=== PATIENT | female | born 1940 | race Caucasian/White ===

== ENCOUNTER 2016-12-11 18:25 | Inpatient (IN) | payer MEDICARE, MEDICAID ==
--- NOTE | 2016-12-11 20:16 | ED Physician Chart ---
Chief Complaint/HPI - Patient Information Date Seen:: 12/11/16 Time Seen:: 20:00 Chief Complaint:: anorexia History of Present Illness:: patient has had decreased oral intake and confusion, agitation and periods of combative behavior. Daughter says patient talks but what she says does not make sense. Patient was hospitalized from 2 to 1 week ago at [facility] for a UTI. Allergies:: Allergies Allergy/AdvReac Type Severity Reaction Status Date / Time Sulfa (Sulfonamide Allergy Verified 12/11/16 19:09 Antibiotics) Vitals:: Vital Signs - 8 hr 12/11/16 18:58 Temp 98.6 F HR 81 RR 16 BP 113/64 O2 Sat % 98 Historian:: Family Member Review:: Nurse's Note Reviewed Review of Systems - Review of Systems General/Constitutional: No fever, No chills Skin: No skin lesions Head: No headache Eyes: No loss of vision ENT: No earache Neck: No neck pain Cardio Vascular: No chest pain, No palpitations Pulmonary: No SOB, No cough GI: No nausea, No vomiting, No diarrhea G/U: No dysuria Musculoskeletal: No bone or joint pain Endocrine: No polyuria, No polydipsia Psychiatric: Prior psych history Past Medical History - Past Medical History Past Medical History: HTN, DM, Dyslipidemia, Other (hypercholesterolemia; dementia; s/p UTI and hematuria) Family History: Diabetes Melitus, HTN Social History: Non Smoker, No Alcohol Surgical History: Cholecystectomy, Hysterectomy Psychiatricy History: Dementia Medication: Reviewed Family Medical History - Family Member Mother History Unknown: Yes Physical Exam - Physical Examination General/Constitutional: Well-developed, well-nourished, Alert, No distress Head: Atraumatic Eyes: Lids, conjuctiva normal, PERRL Skin: Nl inspection, No rash ENMT: External ears, nose nl Neck: No nuchal rigidity Respiratory: Nl effort/Exclusion, Clear to Auscultation Cardio Vascular: RRR GI: No tenderness/rebounding/guarding, No organomegaly, No hernia : No CVA tenderness Neuro/Psych: No focal deficits Labs/Radiology/EKG Results - Lab Results Comments:: Laboratory Results - last 24 hr 12/11/16 12/11/16 20:16 20:16 WBC 9.1 RBC 3.70 L Hgb 11.1 L Hct 32.5 L MCV 87.8 MCH 29.9 MCHC Differential 34.1 RDW 12.9 Plt Count 301 MPV 7.0 Neutrophils % 68.6 Lymphocytes % 25.1 Monocytes % 4.8 Eosinophils % 0.6 Basophils % 0.9 Sodium 132 L Potassium 3.9 Chloride 101 Carbon Dioxide 25.7 Anion Gap 9.2 BUN 23 Creatinine 0.7 Est GFR ( Amer) TNP Est GFR (Non-Af Amer) TNP BUN/Creatinine Ratio 32.9 Glucose 272 H Calcium 9.2 Magnesium 1.6 L Total Bilirubin 0.2 L AST 14 ALT 12 Alkaline Phosphatase 62 Total Protein 6.1 Albumin 3.4 L Globulin 2.7 Albumin/Globulin Ratio 1.3 - Radiology Results Results: CXR negative - EKG Interpretations Rate & Rhythm: NSR; normal axis; old septal PR Assessment - Assessment General Assessment: talked to Dr. Clancy at 2130; patient to be admitted to Med-surg. UA not obtained because of patient's history of combativeness. ED Septic Shock - . Is Septic Shock (SBP<90, OR Lactate>4 mmol\L) present?: No - <6hrs of presentation: Vital Signs: Vital Signs - 8 hr 12/11/ 18:58 Temp 98.6 F HR 81 RR 16 BP 113/64 O2 Sat % 98 Reassessment (Disposition) - Reassessment Reassessment Condition:: Unchanged - Diagnosis Diagnosis:: altered mental status; dementia; hyperglycemia; diabetes - Patient Disposition Admitted to:: Med/Surg Spoke to:: Jesus Clancy Admitting Medical Physician:: Jesus Clancy Condition at Disposition:: Stable, Unchanged
[2016-12-11 20:25] LABS: % BASOPHILS 0.9 % (0.0-2.0); % EOSINOPHILS 0.6 % (0.0-5.0); % LYMPHOCYTES 25.1 % (20.0-50.0); % MONOCYTES 4.8 % (2.0-10.0); % NEUTROPHILS 68.6 % (40.0-80.0); HEMATOCRIT 32.5 % (35.0-45.0); HEMOGLOBIN 11.1 gm/dL (11.7-16.1); MEAN CELL VOLUME 87.8 fl (81-100); MEAN CORPUSCULAR HEMOGLOBIN 29.9 pg (27.0-31.0); MEAN CORPUSCULAR HGB CONC 34.1 pg (28.0-36.0); NEUTROPHILE ABSOLUTE 6.2 Th/cmm (1.8-8.0); PLATELET COUNT 301 Th/cmm (150-400); RED CELL DISTRIBUTION WIDTH 12.9 % (11.5-20.0); WHITE BLOOD COUNT 9.1 Th/cmm (4.8-10.8)
[2016-12-11 20:40] LABS: ALB/GLOB RATIO 1.3 (1.0-1.8); ALKALINE PHOSPHATASE 62 U/L (34-104); ANION GAP 9.2 (7.0-16.0); BILIRUBIN,TOTAL 0.2 mg/dL (0.3-1.0); BUN - UREA NITROGEN 23 mg/dL (7-25); BUN/CREATININE RATIO 32.9; CALCIUM SERUM 9.2 mg/dL (8.6-10.3); CARBON DIOXIDE 25.7 mEq/L (21.0-31.0); CHLORIDE 101 mEq/L (98-107); CREATININE - SERUM 0.7 mg/dL (0.6-1.2); GLUCOSE 272 mg/dL (70-105); MAGNESIUM 1.6 mg/dL (1.9-2.7); POTASSIUM SERUM 3.9 mEq/L (3.5-5.1); SGOT 14 U/L (13-39); SGPT/ALT 12 U/L (7-52); SODIUM SERUM 132 mEq/L (136-145)
[2016-12-11] MEDS ORDERED: Haloperidol Lactate 5 mg/mL 1mL Vial IM STA (22:05)
[2016-12-11] MEDS ORDERED: Haloperidol Lactate 5 mg/mL 1mL Vial ONE (22:06)
[2016-12-11 23:24] VITALS: BP 110/62
[2016-12-12] MEDS ORDERED: Magnesium Hydroxide (MOM) 30 mL UDC PO PRN (00:13)
[2016-12-12] MEDS: Sodium Chloride 0.9% 1,000 ML IV SCH ×2 (00:38→09:32)
[2016-12-12] MEDS: INSULIN ASPART SLIDING SCALE 100 UNITS/ML UNIT SUBQ SCH ×2 (06:31→11:30)
--- NOTE | 2016-12-12 08:30 | Diagnostic Imaging Report ---
Portable chest x-ray Time: 2022 History: Pneumonia Findings: Allowing for portable technique the heart size is normal. No focal pulmonary parenchymal processes. No hilar or mediastinal abnormalities. Impression: No acute abnormalities.
[2016-12-12] MEDS ORDERED: VTE Chemical Prophylaxis Screen/Admission MC PRN (15:19)
[2016-12-12] MEDS ORDERED: Atorvastatin Calcium 10 MG TAB PO SCH (21:00)
--- NOTE | 2016-12-12 21:50 | History & Physical ---
ADMIT DATE: 12/12/2016 HISTORY OF PRESENT ILLNESS: The patient came last night and was admitted initially to the medical floor. The patient is a resident of [facility]. The patient is known to have history of hypertension, history of diabetes, history of dementia, history of psychosis, history of metabolic encephalopathy, apparently not eating, drinking, was agitated and confused, and combative behavior, found to have dehydration and toxic metabolic encephalopathy, and the patient was initially admitted to the medical floor. PAST MEDICAL HISTORY: As enumerated above. PAST SURGICAL HISTORY: As enumerated above. The patient also has perineal excoriation. PHYSICAL EXAMINATION: HEAD: Normal. ENT: Normal. NECK: Supple, nontender. LUNGS: Clear. CARDIOVASCULAR SYSTEM: S1, S2 heard. PSYCHIATRIC: The patient was agitated. DIAGNOSES: Severe agitation, toxic metabolic encephalopathy, confusion, agitation, combative behavioral, history of diabetes, history of hypertension, history of dementia, history of psychosis, history of depression, anxiety, and perineal aspiration . PLAN: The patient is being admitted, given fluids, and I had Dr. Banda see the patient. Dr. Fismhan for psych consult. JOB# [id number]
== END 2016-12-12 16:40 | DRG 640 ==
LOC: ER 18:25 → MSI 21:30
PROVIDERS: ADMIT Internal Medicine; ATTEND Internal Medicine
DX: E86.0 Dehydration (principal); G92 Toxic encephalopathy; F03.91 Unspecified dementia, unspecified severity, with behavioral disturbance; E11.65 Type 2 diabetes mellitus with hyperglycemia; R63.0 Anorexia; I10 Essential (primary) hypertension; E78.5 Hyperlipidemia, unspecified; E78.00 Pure hypercholesterolemia, unspecified; F29 Unspecified psychosis not due to a substance or known physiological condition; F32.9 Major depressive disorder, single episode, unspecified; F41.9 Anxiety disorder, unspecified; Z68.22 Body mass index [BMI] 22.0-22.9, adult; Z87.440 Personal history of urinary (tract) infections; Z88.2 Allergy status to sulfonamides; Z90.49 Acquired absence of other specified parts of digestive tract; Z90.710 Acquired absence of both cervix and uterus; Z83.3 Family history of diabetes mellitus; Z82.49 Family history of ischemic heart disease and other diseases of the circulatory system
CPT/HCPCS: 36415-UA; 71010-TC; 80053-TC; 82948-90; 83036-90; 83735-TC; 85025-TC; 93005; J1200; J1630; J1815; J2060; J7030

== ENCOUNTER 2016-12-12 17:10 | Inpatient (IN) | payer MEDICARE, MEDICAID ==
[2016-12-12 17:15] VITALS: BP 132/74
[2016-12-12] MEDS ORDERED: Magnesium Hydroxide (MOM) 30 mL UDC PO PRN (17:21)
[2016-12-12] MEDS ORDERED: INSULIN ASPART SLIDING SCALE 100 UNITS/ML UNIT SUBQ SCH (21:00)
[2016-12-12] MEDS: Atorvastatin Calcium 10 MG TAB PO SCH (21:14)
[2016-12-12] MEDS: INSULIN ASPART, RECOMBINANT 100 UNITS/ML SUBQ SCH (21:20)
--- NOTE | 2016-12-12 21:54 | History & Physical ---
ADMIT DATE: 12/12/2016 HISTORY OF PRESENT ILLNESS: This is a 76-year-old female patient came from [facility]. The patient is known to have history of diabetes, hypertension, dementia, psychosis, depression, anxiety, perianal excoriation initially was admitted to the medical floor for not eating and failure to thrive, and toxic metabolic encephalopathy, and the patient improved with fluids. The patient was transferred to Geropsych Unit for a psychiatric problem. Dr. Fishman is on the case and is the psych doctor. PHYSICAL EXAMINATION: GENERAL: Alert, oriented female. VITAL SIGNS: As noted in chart. ENT: Normal. LUNGS: Bilaterally clear. CARDIOVASCULAR SYSTEM: S1, S2 heard. ABDOMEN: Soft. Bowel sounds are heard. CENTRAL NERVOUS SYSTEM: Grossly normal. PLAN: This patient is going to be admitted and I will follow the patient medically and Dr. Fishman will follow the patient. JOB# [id number]
[2016-12-13] MEDS: INSULIN ASPART, RECOMBINANT 100 UNITS/ML SUBQ SCH ×4 (06:41→23:22)
--- NOTE | 2016-12-13 10:24 | Progress Notes ---
DATE: 12/13/2016 SUBJECTIVE: The patient was seen in her room, having breakfast. The patient is awake, alert, and oriented x 2 with episodes of confusion. The patient is a poor historian due to medical condition. Otherwise, the patient appears to be comfortable in no acute distress. OBJECTIVE: VITAL SIGNS: Temperature is 98, heart rate of 93, blood pressure is 153/74, respirations of 20, saturation is 97% on room air. HEENT: Head is atraumatic and normocephalic. Eyes: Bilateral conjunctivae are clear. Bilateral pupils are equally round and reactive. NECK: Supple. No JVD. CARDIOVASCULAR: S1 and S2, without murmur. PULMONARY: Clear to auscultation. GASTROINTESTINAL: Soft and nontender without guarding. Positive bowel sounds. MUSCULOSKELETAL: No edema, no clubbing, no cyanosis. ASSESSMENT: 1. Psychosis. 2. Depression. 3. Anxiety. 4. Dementia. 5. Hypertension. 6. Hyperlipidemia. 7. Insomnia. PLAN: We will keep the patient in inpatient psychiatric Unit. We will follow up with the psychiatrist to monitor the patient's condition and behavior. We will follow up with the psychiatrist also to monitor for possible medication adjustment. Treatment plans were discussed with the patient's nurse, treatment plans were discussed with Dr. Clancy. JOB# [id number]
--- NOTE | 2016-12-13 15:20 | Psychosocial Evaluation ---
DATE OF SERVICE: 12/12/2016 IDENTIFYING DATA: The patient is a 76-year-old resident of [facility]. Information obtained by directly interviewing the patient as well as reviewing the admission papers and they are reliable. JUSTIFICATION FOR HOSPITALIZATION: The patient is admitted here because of her acute psychosis and agitated behavior. CHIEF COMPLAINT: "I don't know what is going on, get the children out of my way." HISTORY OF PRESENT ILLNESS: This is the first psychiatric hospitalization to [facility] for this patient. Information has been obtained by directly interviewing the patient and talking to her daughter who happened to be there by the bedside. The patient is reported to have been diagnosed with the dementia for a long period of time, but at least for past 4 days things have been getting out of control. The patient has been reported to be getting agitated, meaner and aggressive. The patient's daughter stating that they have never seen this kind of behavior with her. The patient's sleep is noted to be poor. Appetite is also reported to be poor. The patient is currently a resident of the [facility] and the patient has been having similar problems and hence the patient has been referred over here. At the time of the evaluation, the patient has been on atorvastatin 10 mg in the morning and the patient also has been on Seroquel 25 mg at bedtime, Risperdal 0.5 mg twice a day and the patient is also receiving the trazodone 50 mg on a p.r.n. basis. The patient has been placed on the zolpidem instead of the trazodone and Risperdal is going to be discontinued. PAST PSYCHIATRIC HISTORY: Details are not known. MEDICAL HISTORY: Physical examination requested to be done by Dr. Clancy and is noted to be significant for hypertension, diabetes mellitus, hypercholesterolemia. SUBSTANCE ABUSE HISTORY: None. PHYSICAL OR SEXUAL ABUSE HISTORY: None. LEGAL PROBLEMS: None at this time. SOCIAL HISTORY: The patient is a resident of the [facility] system. MENTAL STATUS EXAMINATION: The patient is a 76-year-old women, thin built, petite, superficially cooperative. Eye contact is poor. Mood is noted to be irritable. Affect is constricted. The patient is having visual hallucinations and auditory hallucinations. The patient is talking to the children that are not there. The patient has no insight into her illness. Coping skills at this time are noted to be very poor. The patient's behavior is equally danger to self and others. The patient is not able to care for self. Attention span is also noted to be very poor. DIAGNOSTIC IMPRESSION: AXIS I: A: Psychotic disorder, not otherwise specified. B: Dementia and behavioral change, secondary trait. AXIS II: None. AXIS III: Diabetes mellitus, hypertension, hypercholesterolemia, arthritis. IMMEDIATE TREATMENT PLAN: The patient is going to be continued on Seroquel, Aricept, and Namenda. Celexa is going to be discontinued. ESTIMATED LENGTH OF STAY: 5-7 days. DISCHARGE CRITERIA: When she no longer a threat to self or others and be able to cope up with the stress. [facility]# [id number]
[2016-12-13] MEDS ORDERED: NYSTATIN 100000 UNITS/GM POWD TP SCH (17:00)
[2016-12-13] MEDS: Atorvastatin Calcium 10 MG TAB PO SCH (20:42)
[2016-12-13] MEDS: Menthol/Zinc Oxide Oint 113gm Tube TP SCH (21:00)
--- NOTE | 2016-12-13 23:49 | Admit Criteria Form ---
Admit Criteria Forms - Admit Criteria Diagnosis: PSYCHIATRIC DISORDERS (Place 'X' for any and all applicable criteria): Ongoing inpatient care may be needed for 1 or more of the following(1)(2)(3)(4)( 6)(7)(8): [ ]I. Danger to self or others not manageable at lower level of care. [ ]II. Grave disability (eg, inability to perform self care necessary at lower level of care) [ ]III. Agitation or inappropriate behavior interfering with care for primary condition (eg, attempting to discontinue lines or drains prematurely, unable to cooperate with respiratory care) [X ]IV. Severe disability or disorder indicated by ALL of the following: [X ]a) Severe behavioral health disorder-related symptoms or condition indicated by 1 or more of the following: [ ]i) Severe problem with cognition, memory, judgment, or impulse control [X ]ii) Severe clinical manifestations (eg, hallucinations , delusions, other acute psychotic symptoms, camilo, extreme agitation or anxiety) [X ]b) Patient management at lower level of care is not feasible until acute intervention or modification is initiated. Extended stay beyond goal length of stay for the primary condition may be needed until ALLof the following are present(1)(2)(3)(4)(7)00)(23): [ ]a) Danger to self or others is absent or manageable at lower level of care [ ]b) Behavior crisis management, including physical or chemical restraints, is required and is not available at a lower level of care. [ ]c) Behavioral symptoms (e.g., agitation, somnolence, inappropriate behavior) are present, and are not manageable at a lower level of care. [ ]d) Patient cannot understand follow-up treatment and crisis plan. [ ]e) Provider and supports are sufficiently available at lower level of care. [ ]f) Patient can participate (e.g., verify absence of plan for harm) and is in needed of monitoring. The original [facility] content created by [facility] has been revised. The portions of the content which have been revised are identified through the use of italic text or in bold, and [facility] has neither reviewed nor approved the modified material. All other unmodified content is copyright [facility]. Please see references footnoted in the original [facility] edition 2017 Admit Criteria Met?: Yes
--- NOTE | 2016-12-14 04:06 | Admit Criteria Form ---
Admit Criteria Forms - Admit Criteria Diagnosis: PSYCHIATRIC DISORDERS (Place 'X' for any and all applicable criteria): Ongoing inpatient care may be needed for 1 or more of the following(1)(2)(3)(4)( 6)(7)(8): [ ]I. Danger to self or others not manageable at lower level of care. [ ]II. Grave disability (eg, inability to perform self care necessary at lower level of care) [ ]III. Agitation or inappropriate behavior interfering with care for primary condition (eg, attempting to discontinue lines or drains prematurely, unable to cooperate with respiratory care) [X ]IV. Severe disability or disorder indicated by ALL of the following: [X ]a) Severe behavioral health disorder-related symptoms or condition indicated by 1 or more of the following: [ ]i) Severe problem with cognition, memory, judgment, or impulse control [ X]ii) Severe clinical manifestations (eg, hallucinations , delusions, other acute psychotic symptoms, camilo, extreme agitation or anxiety) [X ]b) Patient management at lower level of care is not feasible until acute intervention or modification is initiated. Extended stay beyond goal length of stay for the primary condition may be needed until ALLof the following are present(1)(2)(3)(4)(7)77)(23): [ ]a) Danger to self or others is absent or manageable at lower level of care [ ]b) Behavior crisis management, including physical or chemical restraints, is required and is not available at a lower level of care. [ ]c) Behavioral symptoms (e.g., agitation, somnolence, inappropriate behavior) are present, and are not manageable at a lower level of care. [ ]d) Patient cannot understand follow-up treatment and crisis plan. [ ]e) Provider and supports are sufficiently available at lower level of care. [ ]f) Patient can participate (e.g., verify absence of plan for harm) and is in needed of monitoring. The original [facility] content created by [facility] has been revised. The portions of the content which have been revised are identified through the use of italic text or in bold, and [facility] has neither reviewed nor approved the modified material. All other unmodified content is copyright [facility]. Please see references footnoted in the original [facility] edition 2017 Admit Criteria Met?: Yes
[2016-12-14] MEDS: NYSTATIN 100000 UNITS/GM POWD TP SCH ×3 (06:06→16:26)
[2016-12-14] MEDS: INSULIN ASPART, RECOMBINANT 100 UNITS/ML SUBQ SCH ×4 (06:46→20:27)
[2016-12-14] MEDS: Menthol/Zinc Oxide Oint 113gm Tube TP SCH ×3 (10:30→20:27)
--- NOTE | 2016-12-14 11:35 | General Progress Note ---
Subjective - Review of Systems Events since last encounter: patient with no distress awake, alert Objective - Results Recent Labs: Laboratory Last Values POC Glucose 241 MG/DL (70 - 105) H 12/13/16 06:33 - Physical Exam Vitals and I&O: Vital Signs Temp 97.2 F 12/14/16 06:47 Pulse 83 12/14/16 06:47 Resp 20 12/14/16 06:47 BP 141/61 12/14/16 06:47 Pulse Ox 97 12/14/16 06:47 Intake & Output 12/13/16 12/14/16 12/14/16 18:59 06:59 18:59 Intake Total 1320 Balance 1320 Intake: Oral 1320 Other: # Voids 3 # Bowel Movements 0 Active Medications: Current Medications Acetaminophen (Tylenol) 325 mg PO Q6HR PRN PRN Reason: Pain (Mild) Stop: 02/10/17 17:25 Ascorbic Acid (Vitamin C) 500 mg PO DAILY YOSEPH Stop: 02/11/17 08:59 Last Admin: 12/13/16 10:26 Dose: Not Given Atorvastatin Calcium (Lipitor) 10 mg PO HS YOSEPH PRN Reason: Protocol Stop: 02/10/17 20:59 Last Admin: 12/13/16 20:42 Dose: 10 mg Calamine/Phenol (Calmoseptine) 1 appl TP TID YOSEPH Stop: 02/11/17 20:59 Last Admin: 12/13/16 21:00 Dose: 1 appl Citalopram Hydrobromide (Celexa) 10 mg PO DAILY YOSEPH Stop: 02/11/17 08:59 Last Admin: 12/14/16 09:13 Dose: 10 mg Diphenhydramine HCl (Benadryl 50 Mg/Ml) 50 mg IM Q4HR PRN PRN Reason: Agitation Stop: 02/10/17 20:32 Glipizide (Glucotrol) 5 mg PO BID YOSEPH Stop: 02/11/17 08:59 Last Admin: 12/14/16 09:25 Dose: 5 mg Insulin Aspart (Novolog) 0 units SUBQ ACHS YOSEPH PRN Reason: Protocol Stop: 02/10/17 20:59 Last Admin: 12/14/16 06:46 Dose: 4 units Lorazepam (Ativan) 0.5 mg PO Q4HR PRN; Protocol PRN Reason: Anxiety Stop: 01/11/17 17:17 Last Admin: 12/13/16 00:41 Dose: 0.5 mg Losartan Potassium (Cozaar) 100 mg PO DAILY [facility] Stop: 02/11/17 08:59 Last Admin: 12/13/16 10:26 Dose: Not Given Magnesium Hydroxide (Milk Of Magnesia) 30 ml PO HS PRN PRN Reason: Constipation Stop: 02/10/17 17:20 Nystatin (Nystop) 100 units TP BID [facility] Stop: 02/11/17 16:59 Last Admin: 12/14/16 06:06 Dose: Not Given Ondansetron HCl (Zofran Odt) 4 mg PO Q6HR PRN PRN Reason: Nausea / Vomiting Stop: 02/10/17 17:25 Quetiapine Fumarate (Seroquel) 25 mg PO DAILY [facility] PRN Reason: Protocol Stop: 02/11/17 08:59 Last Admin: 12/14/16 09:14 Dose: 25 mg Zolpidem Tartrate (Ambien) 5 mg PO HS PRN PRN Reason: Insomnia Stop: 02/10/17 17:17 General: No acute distress HEENT: Atraumatic Neck: Supple Cardiovascular: Regular rate, Normal S1, Normal S2 Abdomen: Bowel sounds Assessment/Plan - Plan Plan: monitor vitals/diet labs f/p consult
--- NOTE | 2016-12-14 19:20 | Progress Notes ---
DATE: 12/14/2016 SUBJECTIVE: Staff was spoken to. The patient is interviewed. Mood is noted to be irritable. Affect is constricted. The patient is getting easily agitated. Coping skills are noted to be poor. Insight and judgment also noted to be very poor. No side effects to the medications are noted. The patient has been having difficult time to cope with the stress. ASSESSMENT: The patient is still impulsive, psychotic. PLAN: To continue the patient with Seroquel and follow. JOB# [id number]
[2016-12-14] MEDS: Atorvastatin Calcium 10 MG TAB PO SCH (20:27)
--- NOTE | 2016-12-15 02:28 | Progress Notes ---
DATE: 12/13/2016 PSYCHIATRIC PROGRESS NOTE SUBJECTIVE: Staff was spoken to. The patient is interviewed. Mood is noted to be irritable. Affect is constricted. Insight and judgment are noted to be still impaired. Impulse control seems to be poor. Coping skills are also noted to be poor. The patient is still very paranoid. The patient has been having difficult time to cope with the stress. The patient has been screaming and yelling. The patient, however, could be redirectable, but patient is not making any sense at this time. The patient is reported to have slept a little bit better last night with the Seroquel. The patient's appetite is noted to be poor. ASSESSMENT: The patient is still confused, agitated. PLAN: To continue the patient with Seroquel. I encouraged the patient to verbalize the concerns rather than to act out. JOB# [id number]
[2016-12-15] MEDS: INSULIN ASPART, RECOMBINANT 100 UNITS/ML SUBQ SCH ×4 (06:33→20:52)
[2016-12-15] MEDS: Menthol/Zinc Oxide Oint 113gm Tube TP SCH ×3 (09:18→23:06)
[2016-12-15] MEDS: NYSTATIN 100000 UNITS/GM POWD TP SCH ×2 (09:18→16:33)
--- NOTE | 2016-12-15 13:04 | General Progress Note ---
Subjective - Review of Systems Events since last encounter: patient continues to be psychotic denies any chest pain Objective - Results Recent Labs: Laboratory Last Values POC Glucose 280 MG/DL (70 - 105) H 12/15/16 11:51 - Physical Exam Vitals and I&O: Vital Signs Temp 97.8 F 12/15/16 06:27 Pulse 94 12/15/16 09:00 Resp 18 12/15/16 06:27 BP 137/70 12/15/16 09:00 Pulse Ox 97 12/15/16 06:27 Intake & Output 12/14/16 12/15/16 12/15/16 18:59 06:59 18:59 Intake Total 60 Balance 60 Intake: Oral 60 Other: # Voids 3 # Bowel Movements 0 Active Medications: Current Medications Acetaminophen (Tylenol) 325 mg PO Q6HR PRN PRN Reason: Pain (Mild) Stop: 02/10/17 17:25 Ascorbic Acid (Vitamin C) 500 mg PO DAILY YOSEPH Stop: 02/11/17 08:59 Last Admin: 12/15/16 09:00 Dose: Not Given Atorvastatin Calcium (Lipitor) 10 mg PO HS YOSEPH PRN Reason: Protocol Stop: 02/10/17 20:59 Last Admin: 12/14/16 20:27 Dose: 10 mg Calamine/Phenol (Calmoseptine) 1 appl TP TID YOSEPH Stop: 02/11/17 20:59 Last Admin: 12/15/16 09:18 Dose: 1 appl Citalopram Hydrobromide (Celexa) 10 mg PO DAILY YOSEPH Stop: 02/11/17 08:59 Last Admin: 12/15/16 09:00 Dose: Not Given Diphenhydramine HCl (Benadryl 50 Mg/Ml) 50 mg IM Q4HR PRN PRN Reason: Agitation Stop: 02/10/17 20:32 Glipizide (Glucotrol) 5 mg PO BID YOSEPH Stop: 02/11/17 08:59 Last Admin: 12/15/16 09:00 Dose: Not Given Insulin Aspart (Novolog) 0 units SUBQ ACHS YOSEPH PRN Reason: Protocol Stop: 02/10/17 20:59 Last Admin: 12/15/16 12:03 Dose: 6 units Lorazepam (Ativan) 0.5 mg PO Q4HR PRN; Protocol PRN Reason: Anxiety Stop: 01/11/17 17:17 Last Admin: 12/13/16 00:41 Dose: 0.5 mg Losartan Potassium (Cozaar) 100 mg PO DAILY [facility] Stop: 02/11/17 08:59 Last Admin: 12/15/16 09:00 Dose: Not Given Magnesium Hydroxide (Milk Of Magnesia) 30 ml PO HS PRN PRN Reason: Constipation Stop: 02/10/17 17:20 Nystatin (Nystop) 100 units TP BID [facility] Stop: 02/11/17 16:59 Last Admin: 12/15/16 09:18 Dose: 100 units Ondansetron HCl (Zofran Odt) 4 mg PO Q6HR PRN PRN Reason: Nausea / Vomiting Stop: 02/10/17 17:25 Quetiapine Fumarate (Seroquel) 25 mg PO DAILY [facility] PRN Reason: Protocol Stop: 02/11/17 08:59 Last Admin: 12/15/16 09:00 Dose: Not Given Zolpidem Tartrate (Ambien) 5 mg PO HS PRN PRN Reason: Insomnia Stop: 02/10/17 17:17 General: No acute distress HEENT: Atraumatic Neck: Supple Cardiovascular: Regular rate, Normal S1, Normal S2 Abdomen: Bowel sounds Assessment/Plan - Plan Plan: monitor vitals/diet labs f/p consult
[2016-12-15] MEDS: Atorvastatin Calcium 10 MG TAB PO SCH (20:53)
--- NOTE | 2016-12-15 22:52 | Progress Notes ---
DATE: 12/15/2016 PSYCHIATRIC PROGRESS NOTE SUBJECTIVE: ____. The patient is still paranoid and has been getting easily agitated ____. The patient's coping skills are noted to be poor at this time. No side effects to the medications are noted. The patient is currently on 25 mg of the Seroquel and has been able to tolerate it. ASSESSMENT: The patient is still psychotic and impulsive. PLAN: To continue the patient with current medications and follow through. [facility]# [id number]
[2016-12-16] MEDS: INSULIN ASPART, RECOMBINANT 100 UNITS/ML SUBQ SCH ×4 (06:30→20:43)
[2016-12-16] MEDS: NYSTATIN 100000 UNITS/GM POWD TP SCH ×2 (09:51→16:10)
[2016-12-16] MEDS: Menthol/Zinc Oxide Oint 113gm Tube TP SCH ×3 (09:51→20:44)
--- NOTE | 2016-12-16 15:27 | General Progress Note ---
Subjective - Review of Systems Events since last encounter: patient with no acute distress Objective - Results Recent Labs: Laboratory Last Values POC Glucose 280 MG/DL (70 - 105) H 12/15/16 11:51 - Physical Exam Vitals and I&O: Vital Signs Temp 97.8 F 12/16/16 06:24 Pulse 76 12/16/16 09:50 Resp 20 12/16/16 06:24 BP 134/60 12/16/16 09:50 Pulse Ox 98 12/16/16 06:24 Intake & Output 12/15/16 12/16/16 12/16/16 18:59 06:59 18:59 Intake Total 720 300 Balance 720 300 Intake: Oral 720 300 Other: # Voids 4 1 # Bowel Movements 1 1 Active Medications: Current Medications Acetaminophen (Tylenol) 325 mg PO Q6HR PRN PRN Reason: Pain (Mild) Stop: 02/10/17 17:25 Ascorbic Acid (Vitamin C) 500 mg PO DAILY YOSEPH Stop: 02/11/17 08:59 Last Admin: 12/16/16 09:50 Dose: 500 mg Atorvastatin Calcium (Lipitor) 10 mg PO HS YOSEPH PRN Reason: Protocol Stop: 02/10/17 20:59 Last Admin: 12/15/16 20:53 Dose: 10 mg Calamine/Phenol (Calmoseptine) 1 appl TP TID YOSEPH Stop: 02/11/17 20:59 Last Admin: 12/16/16 14:41 Dose: 1 appl Citalopram Hydrobromide (Celexa) 10 mg PO DAILY YOSEPH Stop: 02/11/17 08:59 Last Admin: 12/16/16 09:47 Dose: 10 mg Diphenhydramine HCl (Benadryl 50 Mg/Ml) 50 mg IM Q4HR PRN PRN Reason: Agitation Stop: 02/10/17 20:32 Glipizide (Glucotrol) 5 mg PO BID YOSEPH Stop: 02/11/17 08:59 Last Admin: 12/16/16 09:50 Dose: 5 mg Insulin Aspart (Novolog) 0 units SUBQ ACHS YOSEPH PRN Reason: Protocol Stop: 02/10/17 20:59 Last Admin: 12/16/16 13:33 Dose: Not Given Lorazepam (Ativan) 0.5 mg PO Q4HR PRN; Protocol PRN Reason: Anxiety Stop: 01/11/17 17:17 Last Admin: 12/13/16 00:41 Dose: 0.5 mg Losartan Potassium (Cozaar) 100 mg PO DAILY [facility] Stop: 02/11/17 08:59 Last Admin: 12/16/16 09:50 Dose: 100 mg Magnesium Hydroxide (Milk Of Magnesia) 30 ml PO HS PRN PRN Reason: Constipation Stop: 02/10/17 17:20 Nystatin (Nystop) 100 units TP BID [facility] Stop: 02/11/17 16:59 Last Admin: 12/16/16 09:51 Dose: 100 units Ondansetron HCl (Zofran Odt) 4 mg PO Q6HR PRN PRN Reason: Nausea / Vomiting Stop: 02/10/17 17:25 Quetiapine Fumarate (Seroquel) 25 mg PO DAILY [facility] PRN Reason: Protocol Stop: 02/11/17 08:59 Last Admin: 12/16/16 09:50 Dose: 25 mg Zolpidem Tartrate (Ambien) 5 mg PO HS PRN PRN Reason: Insomnia Stop: 02/10/17 17:17 General: No acute distress HEENT: Atraumatic Neck: Supple Cardiovascular: Regular rate, Normal S1, Normal S2 Abdomen: Bowel sounds Assessment/Plan - Plan Plan: monitor vitals/diet labs f/p consult
[2016-12-16] MEDS: Atorvastatin Calcium 10 MG TAB PO SCH (20:44)
--- NOTE | 2016-12-17 05:06 | Progress Notes ---
DATE: 12/16/2016 PSYCHIATRIC PROGRESS NOTE SUBJECTIVE: Staff was spoken to. The patient is interviewed. Mood is noted to be irritable. Affect is constricted. The patient continues to be very paranoid. The patient is not able to contract for safety. Insight and judgment at this time are noted to be very much impaired. Impulse control seems to be limited. The patient is currently on Seroquel and has been able to tolerate the medication. ASSESSMENT: The patient is still psychotic. PLAN: To continue the patient with the supportive therapy. I encouraged the patient to verbalize the concerns rather than to act out. JOB# [id number]
[2016-12-17] MEDS: INSULIN ASPART, RECOMBINANT 100 UNITS/ML SUBQ SCH ×4 (06:39→21:10)
[2016-12-17] MEDS: NYSTATIN 100000 UNITS/GM POWD TP SCH ×2 (10:00→17:55)
[2016-12-17] MEDS: Menthol/Zinc Oxide Oint 113gm Tube TP SCH ×3 (10:00→21:22)
--- NOTE | 2016-12-17 15:06 | General Progress Note ---
Subjective - Review of Systems Events since last encounter: patient is irritable withdrawn no acute distress Objective - Results Recent Labs: Laboratory Last Values POC Glucose 324 MG/DL (70 - 105) H 12/17/16 11:52 - Physical Exam Vitals and I&O: Vital Signs Temp 98.8 F 12/17/16 06:20 Pulse 78 12/17/16 10:00 Resp 20 12/17/16 06:20 BP 128/57 12/17/16 10:00 Pulse Ox 98 12/17/16 06:20 Intake & Output 12/16/16 12/17/16 12/17/16 18:59 06:59 18:59 Intake Total 800 240 Balance 800 240 Intake: Oral 800 240 Other: # Voids 4 3 # Bowel Movements 0 0 Active Medications: Current Medications Acetaminophen (Tylenol) 325 mg PO Q6HR PRN PRN Reason: Pain (Mild) Stop: 02/10/17 17:25 Ascorbic Acid (Vitamin C) 500 mg PO DAILY YOSEPH Stop: 02/11/17 08:59 Last Admin: 12/17/16 10:00 Dose: 500 mg Atorvastatin Calcium (Lipitor) 10 mg PO HS YOSEPH PRN Reason: Protocol Stop: 02/10/17 20:59 Last Admin: 12/16/16 20:44 Dose: Not Given Calamine/Phenol (Calmoseptine) 1 appl TP TID YOSEPH Stop: 02/11/17 20:59 Last Admin: 12/17/16 13:26 Dose: 1 appl Diphenhydramine HCl (Benadryl 50 Mg/Ml) 50 mg IM Q4HR PRN PRN Reason: Agitation Stop: 02/10/17 20:32 Last Admin: 12/17/16 13:26 Dose: 50 mg Glipizide (Glucotrol) 5 mg PO BID YOSEPH Stop: 02/11/17 08:59 Last Admin: 12/17/16 10:00 Dose: 5 mg Insulin Aspart (Novolog) 0 units SUBQ ACHS YOSEPH PRN Reason: Protocol Stop: 02/10/17 20:59 Last Admin: 12/17/16 12:13 Dose: 8 units Lorazepam (Ativan) 0.5 mg PO Q4HR PRN; Protocol PRN Reason: Anxiety Stop: 01/11/17 17:17 Last Admin: 12/17/16 13:26 Dose: 0.5 mg Losartan Potassium (Cozaar) 100 mg PO DAILY YOSEPH Stop: 02/11/17 08:59 Last Admin: 12/17/16 10:00 Dose: 100 mg Magnesium Hydroxide (Milk Of Magnesia) 30 ml PO HS PRN PRN Reason: Constipation Stop: 02/10/17 17:20 Nystatin (Nystop) 100 units TP BID YOSEPH Stop: 02/11/17 16:59 Last Admin: 12/17/16 10:00 Dose: 100 units Ondansetron HCl (Zofran Odt) 4 mg PO Q6HR PRN PRN Reason: Nausea / Vomiting Stop: 02/10/17 17:25 Quetiapine Fumarate (Seroquel) 25 mg PO DAILY YOSEPH PRN Reason: Protocol Stop: 02/11/17 08:59 Last Admin: 12/17/16 10:00 Dose: 25 mg Zolpidem Tartrate (Ambien) 5 mg PO HS PRN PRN Reason: Insomnia Stop: 02/10/17 17:17 General: No acute distress HEENT: Atraumatic Neck: Supple Cardiovascular: Regular rate, Normal S1, Normal S2 Abdomen: Bowel sounds Assessment/Plan - Plan Plan: monitor vitals/diet labs f/p consult Nutritional Asmnt/Malnutr-PDOC - Dietary Evaluation Malnutrition Findings (Please click <Entered> for more info): Nutritional Asmnt/Malnutrition Start: 12/16/16 17: 21 Text: Status: Complete Freq: Document 12/16/16 17:22 GSUN (Rec: 12/16/16 17:38 [email or web address] [email or web address]) Nutritional Asmnt/Malnutrition Patient General Information Nutritional Screening Moderate Risk Screening Diagnosis Psychotic disorder NOS, dementia and behaviorla change secondary trait Pertinent Medical Hx/Surgical Hx DM, HTN, dementia, psychosis, depression, anxiety, perianal excoriation, hypercholesterolemai, arthritis Subjective Information 76 year old female from SNF, transfered form [facility], [place] speaking. Per nursing notes, pt is confused. Pt seen in solomon chair in rec room, pt was very talkative. Per meal activity, PO intake appear to be increasing since adm, avg PO intake 49% of past 8 meals recorded, meeting 60% of lower end kcal needs. No muscle/fat wasting noted. Current Diet Order/ Nutrition Support Mech chopped, CCHO, MACKENZIE Pertinent Medications Vitamin C, Glucotrol, Novolog, MOM, Zofran, Seroquel Pertinent Labs POC glucose 235-280 since adm Nutritional Hx/Data Height 1.57 m Height (Calculated Centimeters) 157.5 Current Weight (lbs) 55.792 kg Weight (Calculated Kilograms) 55.8 Weight (Calculated Grams) 63408.9 [place] Body Weight 110 Weight Status Approriate GI Symptoms Usual diet at home [place] healthcare: [facility], [facility], [facility] soft Skin Integrity/Comment: Alessandro 17. Redness abdominal fold and groin area. Current %PO Poor (25-49%) Estimated Nutritional Goals BEE in Kcals: Using Current wt Calories/Kcals/Kg CBW 123lb/55.9kg Kcals Calculated 1398-1677kcal (25-30kcal/kg) Protein: Using Current wt Protein Calculated 56g (1g/kg) Fluid: ml 1398-1677ml (1ml/kcal) Nutritional Problem 2. Problem Problem Inadequate oral food beverage intake related to Etiology unknwon, possibly cogntion aeb Signs/Symptoms: avg PO intake meeting 60% of lower end kcal needs 1. Problem Problem Altered nutrition related laboratory values related to Etiology DM aeb Signs/Symptoms: H&P, POC glucose 235-280 since adm Intervention/Recommendation Comments 1. Continue with current diet order. Avg PO intake is inadequate. Assist with meals. 2. Recommend Boost Glucose BID . 3. Recommend glucose labs and POC checks, only 3 POC checks since adm at 235-280H. Expected Outcomes/Goals Expected Outcomes/Goals 1. PO itnake to meet at least 75% of estimated nutritional needs.
[2016-12-17] MEDS: Atorvastatin Calcium 10 MG TAB PO SCH (21:01)
--- NOTE | 2016-12-18 03:16 | Progress Notes ---
DATE: 12/17/2016 SUBJECTIVE: Staff was spoken to. The patient is interviewed. Mood is noted to be irritable. Affect is constricted. The patient is still responding to the internal stimuli. Insight and judgment at this time are noted to be very much impaired. Coping skills are also noted to be poor. No side effects to the medications are noted. The patient is still not able to contact for safety. The patient is actively responding to internal stimuli at this time. ASSESSMENT: The patient is still psychotic and impulsive. PLAN: To continue the patient with the supportive therapy. I encouraged the patient to verbalize the concerns rather than to act out. JOB# [id number]
[2016-12-18] MEDS: INSULIN ASPART, RECOMBINANT 100 UNITS/ML SUBQ SCH ×4 (06:43→21:16)
--- NOTE | 2016-12-18 09:51 | General Progress Note ---
Subjective - Review of Systems Events since last encounter: no distress patient continues to be irritable Objective - Results Recent Labs: Laboratory Last Values POC Glucose 236 MG/DL (70 - 105) H 12/18/16 06:14 - Physical Exam Vitals and I&O: Vital Signs Temp 98.1 F 12/18/16 06:03 Pulse 82 12/18/16 09:13 Resp 18 12/18/16 06:03 BP 139/70 12/18/16 09:13 Pulse Ox 98 12/18/16 06:03 Intake & Output 12/17/16 12/18/16 12/18/16 18:59 06:59 18:59 Intake Total 1600 120 Balance 1600 120 Intake: Oral 1600 120 Other: # Voids 4 3 # Bowel Movements 0 0 Active Medications: Current Medications Acetaminophen (Tylenol) 325 mg PO Q6HR PRN PRN Reason: Pain (Mild) Stop: 02/10/17 17:25 Ascorbic Acid (Vitamin C) 500 mg PO DAILY YOSEPH Stop: 02/11/17 08:59 Last Admin: 12/18/16 09:12 Dose: 500 mg Atorvastatin Calcium (Lipitor) 10 mg PO HS YOSEPH PRN Reason: Protocol Stop: 02/10/17 20:59 Last Admin: 12/17/16 21:01 Dose: 10 mg Calamine/Phenol (Calmoseptine) 1 appl TP TID YOSEPH Stop: 02/11/17 20:59 Last Admin: 12/17/16 21:22 Dose: 1 appl Diphenhydramine HCl (Benadryl 50 Mg/Ml) 50 mg IM Q4HR PRN PRN Reason: Agitation Stop: 02/10/17 20:32 Last Admin: 12/17/16 13:26 Dose: 50 mg Glipizide (Glucotrol) 5 mg PO BID YOSEPH Stop: 02/11/17 08:59 Last Admin: 12/18/16 09:13 Dose: 5 mg Insulin Aspart (Novolog) 0 units SUBQ ACHS YOSEPH PRN Reason: Protocol Stop: 02/10/17 20:59 Last Admin: 12/18/16 06:43 Dose: 4 units Lorazepam (Ativan) 0.5 mg PO Q4HR PRN; Protocol PRN Reason: Anxiety Stop: 01/11/17 17:17 Last Admin: 12/17/16 21:01 Dose: 0.5 mg Losartan Potassium (Cozaar) 100 mg PO DAILY YOSEPH Stop: 02/11/17 08:59 Last Admin: 12/18/16 09:13 Dose: 100 mg Magnesium Hydroxide (Milk Of Magnesia) 30 ml PO HS PRN PRN Reason: Constipation Stop: 02/10/17 17:20 Nystatin (Nystop) 100 units TP BID YOSEPH Stop: 02/11/17 16:59 Last Admin: 12/17/16 17:55 Dose: 100 units Ondansetron HCl (Zofran Odt) 4 mg PO Q6HR PRN PRN Reason: Nausea / Vomiting Stop: 02/10/17 17:25 Quetiapine Fumarate (Seroquel) 25 mg PO DAILY YOSEPH PRN Reason: Protocol Stop: 02/11/17 08:59 Last Admin: 12/18/16 09:12 Dose: 25 mg Zolpidem Tartrate (Ambien) 5 mg PO HS PRN PRN Reason: Insomnia Stop: 02/10/17 17:17 General: No acute distress HEENT: Atraumatic Neck: Supple Cardiovascular: Regular rate, Normal S1, Normal S2 Abdomen: Bowel sounds Assessment/Plan - Plan Plan: monitor vitals/diet labs f/p consult Nutritional Asmnt/Malnutr-PDOC - Dietary Evaluation Malnutrition Findings (Please click <Entered> for more info): Nutritional Asmnt/Malnutrition Start: 12/16/16 17: 21 Text: Status: Complete Freq: Document 12/16/16 17:22 GSUN (Rec: 12/16/16 17:38 GSUN [email or web address]) Nutritional Asmnt/Malnutrition Patient General Information Nutritional Screening Moderate Risk Screening Diagnosis Psychotic disorder NOS, dementia and behaviorla change secondary trait Pertinent Medical Hx/Surgical Hx DM, HTN, dementia, psychosis, depression, anxiety, perianal excoriation, hypercholesterolemai, arthritis Subjective Information 76 year old female from SNF, transfered form [facility], [place] speaking. Per nursing notes, pt is confused. Pt seen in solomon chair in rec room, pt was very talkative. Per meal activity, PO intake appear to be increasing since adm, avg PO intake 49% of past 8 meals recorded, meeting 60% of lower end kcal needs. No muscle/fat wasting noted. Current Diet Order/ Nutrition Support Mech chopped, CCHO, MACKENZIE Pertinent Medications Vitamin C, Glucotrol, Novolog, MOM, Zofran, Seroquel Pertinent Labs POC glucose 235-280 since adm Nutritional Hx/Data Height 1.57 m Height (Calculated Centimeters) 157.5 Current Weight (lbs) 55.792 kg Weight (Calculated Kilograms) 55.8 Weight (Calculated Grams) 54534.9 [place] Body Weight 110 Weight Status Approriate GI Symptoms Usual diet at home [place] healthcare: [facility], [facility], [facility] soft Skin Integrity/Comment: Alessandro 17. Redness abdominal fold and groin area. Current %PO Poor (25-49%) Estimated Nutritional Goals BEE in Kcals: Using Current wt Calories/Kcals/Kg CBW 123lb/55.9kg Kcals Calculated 1398-1677kcal (25-30kcal/kg) Protein: Using Current wt Protein Calculated 56g (1g/kg) Fluid: ml 1398-1677ml (1ml/kcal) Nutritional Problem 2. Problem Problem Inadequate oral food beverage intake related to Etiology unknwon, possibly cogntion aeb Signs/Symptoms: avg PO intake meeting 60% of lower end kcal needs 1. Problem Problem Altered nutrition related laboratory values related to Etiology DM aeb Signs/Symptoms: H&P, POC glucose 235-280 since adm Intervention/Recommendation Comments 1. Continue with current diet order. Avg PO intake is inadequate. Assist with meals. 2. Recommend Boost Glucose BID . 3. Recommend glucose labs and POC checks, only 3 POC checks since adm at 235-280H. Expected Outcomes/Goals Expected Outcomes/Goals 1. PO itnake to meet at least 75% of estimated nutritional needs.
[2016-12-18] MEDS: Menthol/Zinc Oxide Oint 113gm Tube TP SCH ×3 (10:00→21:16)
[2016-12-18] MEDS: NYSTATIN 100000 UNITS/GM POWD TP SCH ×2 (10:00→17:01)
[2016-12-18] MEDS ORDERED: Haloperidol Lactate 5 mg/mL 1mL Vial IM ONE (11:10)
[2016-12-18] MEDS ORDERED: Haloperidol Lactate 5 mg/mL 1mL Vial ONE (11:15)
[2016-12-18] MEDS: Atorvastatin Calcium 10 MG TAB PO SCH (21:16)
[2016-12-18] MEDS ORDERED: INSULIN ASPART, RECOMBINANT 100 UNITS/ML SUBQ ONE (23:57)
--- NOTE | 2016-12-19 03:16 | Progress Notes ---
DATE: 12/18/2016 Staff was spoken to. The patient is interviewed. Mood is noted to be irritable. Affect is constricted. The patient is screaming and yelling and has been aggressive towards the staff members. The patient could not be contained. Insight and judgment at this time are noted to be very much impaired. Hence, patient has to be given 2 mg of Haldol on a stat basis to contain the agitation and psychosis. Please note that the patient is not ready to be discharged to a lower level of care yet. JOB# [id number]
[2016-12-19] MEDS: INSULIN ASPART, RECOMBINANT 100 UNITS/ML SUBQ SCH ×4 (07:18→20:45)
--- NOTE | 2016-12-19 08:52 | General Progress Note ---
Subjective - Review of Systems Events since last encounter: patient remains psychotic yelling at staff and getting irritated Objective - Results Recent Labs: Laboratory Last Values POC Glucose 184 MG/DL (70 - 105) H 12/19/16 06:23 - Physical Exam Vitals and I&O: Vital Signs Temp 97.9 F 12/19/16 06:41 Pulse 74 12/19/16 06:41 Resp 18 12/19/16 06:41 BP 131/65 12/19/16 06:41 Pulse Ox 96 12/19/16 06:41 Intake & Output 12/18/16 12/19/16 12/19/16 18:59 06:59 18:59 Intake Total 1400 120 Balance 1400 120 Intake: Oral 1400 120 Other: # Voids 3 3 # Bowel Movements 0 Active Medications: Current Medications Acetaminophen (Tylenol) 325 mg PO Q6HR PRN PRN Reason: Pain (Mild) Stop: 02/10/17 17:25 Ascorbic Acid (Vitamin C) 500 mg PO DAILY YOSEPH Stop: 02/11/17 08:59 Last Admin: 12/18/16 09:12 Dose: 500 mg Atorvastatin Calcium (Lipitor) 10 mg PO HS YOSEPH PRN Reason: Protocol Stop: 02/10/17 20:59 Last Admin: 12/18/16 21:16 Dose: 10 mg Calamine/Phenol (Calmoseptine) 1 appl TP TID YOSEPH Stop: 02/11/17 20:59 Last Admin: 12/18/16 21:16 Dose: 1 appl Diphenhydramine HCl (Benadryl 50 Mg/Ml) 50 mg IM Q4HR PRN PRN Reason: Agitation Stop: 02/10/17 20:32 Last Admin: 12/17/16 13:26 Dose: 50 mg Glipizide (Glucotrol) 5 mg PO BID YOSEPH Stop: 02/11/17 08:59 Last Admin: 12/18/16 17:28 Dose: 5 mg Insulin Aspart (Novolog) 0 units SUBQ ACHS YOSEPH PRN Reason: Protocol Stop: 02/10/17 20:59 Last Admin: 12/19/16 07:18 Dose: 2 units Lorazepam (Ativan) 0.5 mg PO Q4HR PRN; Protocol PRN Reason: Anxiety Stop: 01/11/17 17:17 Last Admin: 08/31/17 17:27 Dose: 0.5 mg Losartan Potassium (Cozaar) 100 mg PO DAILY YOSEPH Stop: 02/11/17 08:59 Last Admin: 12/18/16 09:13 Dose: 100 mg Magnesium Hydroxide (Milk Of Magnesia) 30 ml PO HS PRN PRN Reason: Constipation Stop: 02/10/17 17:20 Nystatin (Nystop) 100 units TP BID YOSEPH Stop: 02/11/17 16:59 Last Admin: 12/18/16 17:01 Dose: 100 units Ondansetron HCl (Zofran Odt) 4 mg PO Q6HR PRN PRN Reason: Nausea / Vomiting Stop: 02/10/17 17:25 Quetiapine Fumarate (Seroquel) 25 mg PO DAILY YOSEPH PRN Reason: Protocol Stop: 02/11/17 08:59 Last Admin: 12/18/16 09:12 Dose: 25 mg Zolpidem Tartrate (Ambien) 5 mg PO HS PRN PRN Reason: Insomnia Stop: 02/10/17 17:17 General: No acute distress HEENT: Atraumatic Neck: Supple Cardiovascular: Regular rate, Normal S1, Normal S2 Abdomen: Bowel sounds Assessment/Plan - Plan Plan: monitor vitals/diet labs f/p consult Nutritional Asmnt/Malnutr-PDOC - Dietary Evaluation Malnutrition Findings (Please click <Entered> for more info): Nutritional Asmnt/Malnutrition Start: 12/16/16 17: 21 Text: Status: Complete Freq: Document 12/16/16 17:22 GSUN (Rec: 12/16/16 17:38 GSUN [email or web address]) Nutritional Asmnt/Malnutrition Patient General Information Nutritional Screening Moderate Risk Screening Diagnosis Psychotic disorder NOS, dementia and behaviorla change secondary trait Pertinent Medical Hx/Surgical Hx DM, HTN, dementia, psychosis, depression, anxiety, perianal excoriation, hypercholesterolemai, arthritis Subjective Information 76 year old female from SNF, transfered form [facility], [place] speaking. Per nursing notes, pt is confused. Pt seen in solomon chair in rec room, pt was very talkative. Per meal activity, PO intake appear to be increasing since adm, avg PO intake 49% of past 8 meals recorded, meeting 60% of lower end kcal needs. No muscle/fat wasting noted. Current Diet Order/ Nutrition Support Mech chopped, CCHO, MACKENZIE Pertinent Medications Vitamin C, Glucotrol, Novolog, MOM, Zofran, Seroquel Pertinent Labs POC glucose 235-280 since adm Nutritional Hx/Data Height 1.57 m Height (Calculated Centimeters) 157.5 Current Weight (lbs) 55.792 kg Weight (Calculated Kilograms) 55.8 Weight (Calculated Grams) 70808.9 [place] Body Weight 110 Weight Status Approriate GI Symptoms Usual diet at home [place] [facility]: [facility], MACKENZIE, [facility] soft Skin Integrity/Comment: Alessandro 17. Redness abdominal fold and groin area. Current %PO Poor (25-49%) Estimated Nutritional Goals BEE in Kcals: Using Current wt Calories/Kcals/Kg CBW 123lb/55.9kg Kcals Calculated 1398-1677kcal (25-30kcal/kg) Protein: Using Current wt Protein Calculated 56g (1g/kg) Fluid: ml 1398-1677ml (1ml/kcal) Nutritional Problem 2. Problem Problem Inadequate oral food beverage intake related to Etiology unknwon, possibly cogntion aeb Signs/Symptoms: avg PO intake meeting 60% of lower end kcal needs 1. Problem Problem Altered nutrition related laboratory values related to Etiology DM aeb Signs/Symptoms: H&P, POC glucose 235-280 since adm Intervention/Recommendation Comments 1. Continue with current diet order. Avg PO intake is inadequate. Assist with meals. 2. Recommend Boost Glucose BID . 3. Recommend glucose labs and POC checks, only 3 POC checks since adm at 235-280H. Expected Outcomes/Goals Expected Outcomes/Goals 1. PO itnake to meet at least 75% of estimated nutritional needs.
[2016-12-19] MEDS: NYSTATIN 100000 UNITS/GM POWD TP SCH ×2 (09:34→17:28)
[2016-12-19] MEDS: Menthol/Zinc Oxide Oint 113gm Tube TP SCH ×3 (09:34→20:27)
[2016-12-19] MEDS: Atorvastatin Calcium 10 MG TAB PO SCH (20:27)
[2016-12-19] MEDS ORDERED: INSULIN ASPART, RECOMBINANT 100 UNITS/ML SUBQ ONE (22:51)
[2016-12-20] MEDS: INSULIN ASPART, RECOMBINANT 100 UNITS/ML SUBQ SCH ×4 (06:31→20:29)
[2016-12-20] MEDS: NYSTATIN 100000 UNITS/GM POWD TP SCH ×3 (08:57→17:37)
[2016-12-20] MEDS: Menthol/Zinc Oxide Oint 113gm Tube TP SCH ×3 (08:57→20:33)
--- NOTE | 2016-12-20 10:50 | Progress Notes ---
DATE: 12/19/2016 SUBJECTIVE: Staff was spoken to. The patient is interviewed. Mood is noted to be irritable. Affect is constricted. Insight and judgment are noted to be still impaired. Impulse control is noted to be poor. Coping skills are noted to be extremely poor at this time. The patient is screaming and yelling. No side effects to the medications are noted. The patient is currently on Seroquel 25 mg and has been able to tolerate the medication. Sleep is noted to be poor. Appetite is noted to be improving. No side to the medications are noted. ASSESSMENT: The patient is still paranoid. PLAN: To continue the patient with the supportive therapy, encouraged the patient to verbalize the concerns rather than to act out. [facility]# [id number]
--- NOTE | 2016-12-20 20:22 | Progress Notes ---
DATE: 12/20/2016 SUBJECTIVE: The patient was seen in her room, lying in the bed. The patient is asleep, but is arousable. The patient appears to be comfortable. No shortness of breath and no signs of distress. OBJECTIVE: VITAL SIGNS: Temperature 97.4, heart rate of 85, blood pressure 137/79, respirations of 19, saturation is 96% on room air. HEENT: Head is atraumatic and normocephalic. Eyes: Bilateral conjunctivae are clear. Bilateral pupils are equally round and reactive. NECK: Supple. No JVD. CARDIOVASCULAR: S1 and S2, without murmur. PULMONARY: Clear to auscultation. GASTROINTESTINAL: Soft and nontender without guarding. Positive bowel sounds. MUSCULOSKELETAL: No edema. No clubbing. No cyanosis noted. ASSESSMENT: 1.Dementia. 2.Anxiety. 3.Depression. 4.Psychosis. 5.Insomnia. 6.Hypertension. 7.Hyperlipidemia. PLAN: We will keep the patient an inpatient in the Psychiatric Unit. We will follow up with a psychiatrist to monitor the patient's condition. Treatment plans were discussed with Dr. Clancy. Treatment plans were discussed patient's nurse. JOB# [id number]
[2016-12-20] MEDS: Atorvastatin Calcium 10 MG TAB PO SCH (20:29)
[2016-12-21] MEDS: INSULIN ASPART, RECOMBINANT 100 UNITS/ML SUBQ SCH ×4 (06:43→21:27)
[2016-12-21] MEDS: Menthol/Zinc Oxide Oint 113gm Tube TP SCH ×3 (08:49→21:33)
--- NOTE | 2016-12-21 12:17 | General Progress Note ---
Subjective - Review of Systems Events since last encounter: no change Objective - Results Recent Labs: Laboratory Last Values Glucose 263 mg/dL (70-105) H 12/19/16 23:04 POC Glucose 356 MG/DL (70 - 105) H 12/21/16 11:12 - Physical Exam Vitals and I&O: Vital Signs Temp 97.5 F 12/20/16 20:22 Pulse 65 12/20/16 20:22 Resp 19 12/20/16 20:22 BP 100/58 12/20/16 20:22 Pulse Ox 97 12/20/16 20:22 Intake & Output 12/20/16 12/21/16 12/21/16 18:59 06:59 18:59 Intake Total 1200 120 Balance 1200 120 Intake: Oral 1200 120 Other: # Voids 1 # Bowel Movements 1 Active Medications: Current Medications Acetaminophen (Tylenol) 325 mg PO Q6HR PRN PRN Reason: Pain (Mild) Stop: 02/10/17 17:25 Ascorbic Acid (Vitamin C) 500 mg PO DAILY YOSEPH Stop: 02/11/17 08:59 Last Admin: 12/20/16 09:30 Dose: Not Given Atorvastatin Calcium (Lipitor) 10 mg PO HS YOSEPH PRN Reason: Protocol Stop: 02/10/17 20:59 Last Admin: 12/20/16 20:29 Dose: 10 mg Calamine/Phenol (Calmoseptine) 1 appl TP TID YOSEPH Stop: 02/11/17 20:59 Last Admin: 12/20/16 20:33 Dose: 1 appl Diphenhydramine HCl (Benadryl 50 Mg/Ml) 50 mg IM Q4HR PRN PRN Reason: Agitation Stop: 02/10/17 20:32 Last Admin: 12/17/16 13:26 Dose: 50 mg Glipizide (Glucotrol) 5 mg PO BID YOSEPH Stop: 02/11/17 08:59 Last Admin: 12/20/16 17:26 Dose: 5 mg Insulin Aspart (Novolog) 0 units SUBQ ACHS YOSEPH PRN Reason: Protocol Stop: 02/10/17 20:59 Last Admin: 12/21/16 11:34 Dose: 10 units Lorazepam (Ativan) 0.5 mg PO Q4HR PRN; Protocol PRN Reason: Anxiety Stop: 01/11/17 17:17 Last Admin: 12/20/16 17:26 Dose: 0.5 mg Losartan Potassium (Cozaar) 100 mg PO DAILY YOSEPH Stop: 02/11/17 08:59 Last Admin: 12/20/16 09:30 Dose: Not Given Magnesium Hydroxide (Milk Of Magnesia) 30 ml PO HS PRN PRN Reason: Constipation Stop: 02/10/17 17:20 Ondansetron HCl (Zofran Odt) 4 mg PO Q6HR PRN PRN Reason: Nausea / Vomiting Stop: 02/10/17 17:25 Quetiapine Fumarate (Seroquel) 25 mg PO DAILY YOSEPH PRN Reason: Protocol Stop: 02/11/17 08:59 Last Admin: 12/20/16 09:30 Dose: Not Given Zolpidem Tartrate (Ambien) 5 mg PO HS PRN PRN Reason: Insomnia Stop: 02/10/17 17:17 Last Admin: 12/20/16 20:29 Dose: 5 mg General: No acute distress HEENT: Atraumatic Neck: Supple Cardiovascular: Regular rate, Normal S1, Normal S2 Abdomen: Bowel sounds Assessment/Plan - Plan Plan: monitor vitals/diet labs f/p consult Nutritional Asmnt/Malnutr-PDOC - Dietary Evaluation Malnutrition Findings (Please click <Entered> for more info): Nutritional Asmnt/Malnutrition Start: 12/16/16 17: 21 Text: Status: Complete Freq: Document 12/16/16 17:22 GSUN (Rec: 12/16/16 17:38 GSUN [email or web address]) Nutritional Asmnt/Malnutrition Patient General Information Nutritional Screening Moderate Risk Screening Diagnosis Psychotic disorder NOS, dementia and behaviorla change secondary trait Pertinent Medical Hx/Surgical Hx DM, HTN, dementia, psychosis, depression, anxiety, perianal excoriation, hypercholesterolemai, arthritis Subjective Information 76 year old female from SNF, transfered form [facility], [place] speaking. Per nursing notes, pt is confused. Pt seen in solomon chair in rec room, pt was very talkative. Per meal activity, PO intake appear to be increasing since adm, avg PO intake 49% of past 8 meals recorded, meeting 60% of lower end kcal needs. No muscle/fat wasting noted. Current Diet Order/ Nutrition Support Mech chopped, CCHO, MACKENZIE Pertinent Medications Vitamin C, Glucotrol, Novolog, MOM, Zofran, Seroquel Pertinent Labs POC glucose 235-280 since adm Nutritional Hx/Data Height 1.57 m Height (Calculated Centimeters) 157.5 Current Weight (lbs) 55.792 kg Weight (Calculated Kilograms) 55.8 Weight (Calculated Grams) 10038.9 [place] Body Weight 110 Weight Status Approriate GI Symptoms Usual diet at home [place] healthcare: [facility], [facility], [facility] soft Skin Integrity/Comment: Alessandro 17. Redness abdominal fold and groin area. Current %PO Poor (25-49%) Estimated Nutritional Goals BEE in Kcals: Using Current wt Calories/Kcals/Kg CBW 123lb/55.9kg Kcals Calculated 1398-1677kcal (25-30kcal/kg) Protein: Using Current wt Protein Calculated 56g (1g/kg) Fluid: ml 1398-1677ml (1ml/kcal) Nutritional Problem 2. Problem Problem Inadequate oral food beverage intake related to Etiology unknwon, possibly cogntion aeb Signs/Symptoms: avg PO intake meeting 60% of lower end kcal needs 1. Problem Problem Altered nutrition related laboratory values related to Etiology DM aeb Signs/Symptoms: H&P, POC glucose 235-280 since adm Intervention/Recommendation Comments 1. Continue with current diet order. Avg PO intake is inadequate. Assist with meals. 2. Recommend Boost Glucose BID . 3. Recommend glucose labs and POC checks, only 3 POC checks since adm at 235-280H. Expected Outcomes/Goals Expected Outcomes/Goals 1. PO itnake to meet at least 75% of estimated nutritional needs.
[2016-12-21] MEDS: Atorvastatin Calcium 10 MG TAB PO SCH (21:15)
--- NOTE | 2016-12-21 22:00 | Progress Notes ---
DATE: 12/20/2016 SUBJECTIVE: Staff was spoken to. The patient is interviewed. Mood is noted to be irritable. Affect is constricted. The patient is still very psychotic and has been having difficult time to cope with the stress. No side effects to the medications are noted. The patient is still responding to internal stimuli. The patient has no insight into her illness. The patient has been mumbling to self. ASSESSMENT: The patient is still grossly psychotic. PLAN: To continue the patient with Seroquel and follow the patient with the supportive therapy. JOB# [id number]
[2016-12-22] MEDS: INSULIN ASPART, RECOMBINANT 100 UNITS/ML SUBQ SCH ×4 (06:58→20:38)
--- NOTE | 2016-12-22 08:28 | General Progress Note ---
Subjective - Review of Systems Events since last encounter: patient awake with no acute distress denies chest pain denies sob Objective - Results Recent Labs: Laboratory Last Values Glucose 263 mg/dL (70-105) H 12/19/16 23:04 POC Glucose 232 MG/DL (70 - 105) H 12/21/16 17:03 - Physical Exam Vitals and I&O: Vital Signs Temp 98.4 F 12/22/16 06:28 Pulse 67 12/22/16 06:28 Resp 20 12/22/16 06:28 BP 134/60 12/22/16 06:28 Pulse Ox 94 12/22/16 06:28 Intake & Output 12/21/16 12/22/16 12/22/16 18:59 06:59 18:59 Intake Total 900 180 Balance 900 180 Intake: Oral 900 180 Other: # Voids 4 2 # Bowel Movements 1 1 Active Medications: Current Medications Acetaminophen (Tylenol) 325 mg PO Q6HR PRN PRN Reason: Pain (Mild) Stop: 02/10/17 17:25 Ascorbic Acid (Vitamin C) 500 mg PO DAILY YOSEPH Stop: 02/11/17 08:59 Last Admin: 12/21/16 15:49 Dose: Not Given Atorvastatin Calcium (Lipitor) 10 mg PO HS YOSEPH PRN Reason: Protocol Stop: 02/10/17 20:59 Last Admin: 12/21/16 21:15 Dose: 10 mg Calamine/Phenol (Calmoseptine) 1 appl TP TID YOSEPH Stop: 02/11/17 20:59 Last Admin: 12/21/16 21:33 Dose: 1 appl Diphenhydramine HCl (Benadryl 50 Mg/Ml) 50 mg IM Q4HR PRN PRN Reason: Agitation Stop: 02/10/17 20:32 Last Admin: 12/17/16 13:26 Dose: 50 mg Glipizide (Glucotrol) 5 mg PO BID YOSEPH Stop: 02/11/17 08:59 Last Admin: 12/21/16 17:08 Dose: 5 mg Insulin Aspart (Novolog) 0 units SUBQ ACHS YOSEPH PRN Reason: Protocol Stop: 02/10/17 20:59 Last Admin: 12/22/16 06:58 Dose: 2 units Lorazepam (Ativan) 0.5 mg PO Q4HR PRN; Protocol PRN Reason: Anxiety Stop: 01/11/17 17:17 Last Admin: 12/21/16 12:15 Dose: 0.5 mg Losartan Potassium (Cozaar) 100 mg PO DAILY YOSEPH Stop: 02/11/17 08:59 Last Admin: 12/21/16 15:49 Dose: Not Given Magnesium Hydroxide (Milk Of Magnesia) 30 ml PO HS PRN PRN Reason: Constipation Stop: 02/10/17 17:20 Ondansetron HCl (Zofran Odt) 4 mg PO Q6HR PRN PRN Reason: Nausea / Vomiting Stop: 02/10/17 17:25 Quetiapine Fumarate (Seroquel) 25 mg PO DAILY YOSEPH PRN Reason: Protocol Stop: 02/11/17 08:59 Last Admin: 12/21/16 12:15 Dose: 25 mg Zolpidem Tartrate (Ambien) 5 mg PO HS PRN PRN Reason: Insomnia Stop: 02/10/17 17:17 Last Admin: 12/21/16 21:16 Dose: 5 mg General: No acute distress HEENT: Atraumatic Neck: Supple Cardiovascular: Regular rate, Normal S1, Normal S2 Abdomen: Bowel sounds Assessment/Plan - Plan Plan: monitor vitals/diet labs f/p consult Nutritional Asmnt/Malnutr-PDOC - Dietary Evaluation Malnutrition Findings (Please click <Entered> for more info): Nutritional Asmnt/Malnutrition Start: 12/16/16 17: 21 Text: Status: Complete Freq: Document 12/16/16 17:22 GSUN (Rec: 12/16/16 17:38 GSUN [email or web address]) Nutritional Asmnt/Malnutrition Patient General Information Nutritional Screening Moderate Risk Screening Diagnosis Psychotic disorder NOS, dementia and behaviorla change secondary trait Pertinent Medical Hx/Surgical Hx DM, HTN, dementia, psychosis, depression, anxiety, perianal excoriation, hypercholesterolemai, arthritis Subjective Information 76 year old female from SNF, transfered form [facility], [place] speaking. Per nursing notes, pt is confused. Pt seen in solomon chair in rec room, pt was very talkative. Per meal activity, PO intake appear to be increasing since adm, avg PO intake 49% of past 8 meals recorded, meeting 60% of lower end kcal needs. No muscle/fat wasting noted. Current Diet [facility]/ [facility], CCHO, MACKENZIE Pertinent Medications Vitamin C, Glucotrol, Novolog, MOM, Zofran, Seroquel Pertinent Labs POC glucose 235-280 since adm Nutritional Hx/Data Height 1.57 m Height (Calculated Centimeters) 157.5 Current Weight (lbs) 55.792 kg Weight (Calculated Kilograms) 55.8 Weight (Calculated Grams) 15422.9 [place] Body Weight 110 Weight Status Approriate GI Symptoms Usual diet at home [place] [facility], MACKENZ[place], [facility] soft Skin Integrity/Comment: Alessandro 17. Redness abdominal fold and groin area. Current %PO Poor (25-49%) Estimated Nutritional Goals BEE in Kcals: Using Current wt Calories/Kcals/Kg CBW 123lb/55.9kg Kcals Calculated 1398-1677kcal (25-30kcal/kg) Protein: Using Current wt Protein Calculated 56g (1g/kg) Fluid: ml 1398-1677ml (1ml/kcal) Nutritional Problem 2. Problem Problem Inadequate oral food beverage intake related to Etiology unknwon, possibly cogntion aeb Signs/Symptoms: avg PO intake meeting 60% of lower end kcal needs 1. Problem Problem Altered nutrition related laboratory values related to Etiology DM aeb Signs/Symptoms: H&P, POC glucose 235-280 since adm Intervention/Recommendation Comments 1. Continue with current diet order. Avg PO intake is inadequate. Assist with meals. 2. Recommend Boost Glucose BID . 3. Recommend glucose labs and POC checks, only 3 POC checks since adm at 235-280H. Expected Outcomes/Goals Expected Outcomes/Goals 1. PO itnake to meet at least 75% of estimated nutritional needs.
[2016-12-22] MEDS: Menthol/Zinc Oxide Oint 113gm Tube TP SCH ×3 (09:07→20:46)
--- NOTE | 2016-12-22 10:26 | Progress Notes ---
DATE: 12/21/2016 PSYCHIATRIC PROGRESS NOTE SUBJECTIVE: Staff was spoken to. The patient is interviewed. Mood is noted to be irritable. Affect is constricted. The patient is refusing to comply with the medications. Insight and judgment at this time are noted to be still impaired. Impulse control seems to be limited. The patient has been having difficult time to cope with the stress. The patient has been isolative and withdrawn, actively responding to internal stimuli. ASSESSMENT: The patient is still psychotic. PLAN: To continue the patient with Seroquel. I encouraged the patient to verbalize the concerns rather than to act out. The patient is not ready to be discharged to a lower level of care yet. [facility]# [id number]
[2016-12-22] MEDS: Atorvastatin Calcium 10 MG TAB PO SCH (20:38)
--- NOTE | 2016-12-23 03:23 | Progress Notes ---
DATE: 12/22/2016 PSYCHIATRIC PROGRESS NOTE SUBJECTIVE: Staff was spoken to. The patient is interviewed. Mood is noted to be irritable. Affect is constricted. The patient is still ____ hands on the guido chair. Insight and judgment are noted to be very much impaired. Impulse control seems to be poor. The patient is still confused. The patient is currently on Seroquel 25 mg and has been able to tolerate the medications. No side effects to the medications are noted. The patient's sleep is noted to be improving. Appetite is noted to be fair. Impulsivity is a problem. ASSESSMENT: The patient is still psychotic and demented. PLAN: To continue the patient with supportive therapy. Encourage the patient to verbalize the concerns rather than to act out. JOB# [id number]
[2016-12-23] MEDS: INSULIN ASPART, RECOMBINANT 100 UNITS/ML SUBQ SCH ×4 (06:38→20:39)
--- NOTE | 2016-12-23 09:52 | General Progress Note ---
Subjective - Review of Systems Subjective: awake, alert, nad Objective - Results Recent Labs: Laboratory Last Values Glucose 263 mg/dL (70-105) H 12/19/16 23:04 POC Glucose 212 MG/DL (70 - 105) H 12/23/16 06:27 - Physical Exam Vitals and I&O: Vital Signs Temp 98.3 F 12/23/16 06:36 Pulse 77 12/23/16 06:36 Resp 20 12/23/16 06:36 BP 127/67 12/23/16 06:36 Pulse Ox 98 12/23/16 06:36 Intake & Output 12/22/16 12/23/16 12/23/16 18:59 06:59 18:59 Intake Total 1800 120 Balance 1800 120 Intake: Oral 1800 120 Other: # Voids 2 3 # Bowel Movements 0 0 Active Medications: Current Medications Acetaminophen (Tylenol) 325 mg PO Q6HR PRN PRN Reason: Pain (Mild) Stop: 02/10/17 17:25 Ascorbic Acid (Vitamin C) 500 mg PO DAILY YOSEPH Stop: 02/11/17 08:59 Last Admin: 12/22/16 09:01 Dose: 500 mg Atorvastatin Calcium (Lipitor) 10 mg PO HS YOSEPH PRN Reason: Protocol Stop: 02/10/17 20:59 Last Admin: 12/22/16 20:38 Dose: 10 mg Calamine/Phenol (Calmoseptine) 1 appl TP TID YOSEPH Stop: 02/11/17 20:59 Last Admin: 12/22/16 20:46 Dose: 1 appl Diphenhydramine HCl (Benadryl 50 Mg/Ml) 50 mg IM Q4HR PRN PRN Reason: Agitation Stop: 02/10/17 20:32 Last Admin: 12/17/16 13:26 Dose: 50 mg Glipizide (Glucotrol) 5 mg PO BID YOSEPH Stop: 02/11/17 08:59 Last Admin: 12/22/16 17:09 Dose: 5 mg Insulin Aspart (Novolog) 0 units SUBQ ACHS YOSEPH PRN Reason: Protocol Stop: 02/10/17 20:59 Last Admin: 12/23/16 06:38 Dose: 4 units Lorazepam (Ativan) 0.5 mg PO Q4HR PRN; Protocol PRN Reason: Anxiety Stop: 01/11/17 17:17 Last Admin: 12/21/16 12:15 Dose: 0.5 mg Losartan Potassium (Cozaar) 100 mg PO DAILY YOSEPH Stop: 02/11/17 08:59 Last Admin: 12/22/16 16:13 Dose: Not Given Magnesium Hydroxide (Milk Of Magnesia) 30 ml PO HS PRN PRN Reason: Constipation Stop: 02/10/17 17:20 Ondansetron HCl (Zofran Odt) 4 mg PO Q6HR PRN PRN Reason: Nausea / Vomiting Stop: 02/10/17 17:25 Quetiapine Fumarate (Seroquel) 25 mg PO DAILY YOSEPH PRN Reason: Protocol Stop: 02/11/17 08:59 Last Admin: 12/22/16 09:02 Dose: 25 mg Zolpidem Tartrate (Ambien) 5 mg PO HS PRN PRN Reason: Insomnia Stop: 02/10/17 17:17 Last Admin: 12/22/16 20:39 Dose: 5 mg General: No acute distress HEENT: Atraumatic Neck: Supple Cardiovascular: Regular rate, Normal S1, Normal S2 Abdomen: Bowel sounds Assessment/Plan - Plan Plan: monitor vitals/diet labs f/p consult Nutritional Asmnt/Malnutr-PDOC - Dietary Evaluation Malnutrition Findings (Please click <Entered> for more info): Nutritional Asmnt/Malnutrition Start: 12/16/16 17: 21 Text: Status: Complete Freq: Document 12/16/16 17:22 GSUN (Rec: 12/16/16 17:38 GSUN [email or web address]) Nutritional Asmnt/Malnutrition Patient General Information Nutritional Screening Moderate Risk Screening Diagnosis Psychotic disorder NOS, dementia and behaviorla change secondary trait Pertinent Medical Hx/Surgical Hx DM, HTN, dementia, psychosis, depression, anxiety, perianal excoriation, hypercholesterolemai, arthritis Subjective Information 76 year old female from SNF, transfered form [facility], Khmer speaking. Per nursing notes, pt is confused. Pt seen in solomon chair in rec room, pt was very talkative. Per meal activity, PO intake appear to be increasing since adm, avg PO intake 49% of past 8 meals recorded, meeting 60% of lower end kcal needs. No muscle/fat wasting noted. Current Diet Order/ Nutrition Support Mech chopped, CCHO, MACKENZIE Pertinent Medications Vitamin C, Glucotrol, Novolog, MOM, Zofran, Seroquel Pertinent Labs POC glucose 235-280 since adm Nutritional Hx/Data Height 1.57 m Height (Calculated Centimeters) 157.5 Current Weight (lbs) 55.792 kg Weight (Calculated Kilograms) 55.8 Weight (Calculated Grams) 46206.9 [place] Body Weight 110 Weight Status Approriate GI Symptoms Usual diet at home [place] healthcare: [facility], [facility], [facility] soft Skin Integrity/Comment: Alessandro 17. Redness abdominal fold and groin area. Current %PO Poor (25-49%) Estimated Nutritional Goals BEE in Kcals: Using Current wt Calories/Kcals/Kg CBW 123lb/55.9kg Kcals Calculated 1398-1677kcal (25-30kcal/kg) Protein: Using Current wt Protein Calculated 56g (1g/kg) Fluid: ml 1398-1677ml (1ml/kcal) Nutritional Problem 2. Problem Problem Inadequate oral food beverage intake related to Etiology unknwon, possibly cogntion aeb Signs/Symptoms: avg PO intake meeting 60% of lower end kcal needs 1. Problem Problem Altered nutrition related laboratory values related to Etiology DM aeb Signs/Symptoms: H&P, POC glucose 235-280 since adm Intervention/Recommendation Comments 1. Continue with current diet order. Avg PO intake is inadequate. Assist with meals. 2. Recommend Boost Glucose BID . 3. Recommend glucose labs and POC checks, only 3 POC checks since adm at 235-280H. Expected Outcomes/Goals Expected Outcomes/Goals 1. PO itnake to meet at least 75% of estimated nutritional needs.
[2016-12-23] MEDS: Menthol/Zinc Oxide Oint 113gm Tube TP SCH ×3 (10:09→20:40)
[2016-12-23] MEDS: Atorvastatin Calcium 10 MG TAB PO SCH (20:34)
--- NOTE | 2016-12-24 02:23 | Progress Notes ---
DATE: 12/23/2016 Staff was spoken to. The patient is interviewed. Mood is noted to be irritable. Affect is constricted. The patient is still confused and demented and very disruptive. The patient has been taking her dirty diaper out and putting them on the bed rails. The patient has to be redirected. The patient's coping skills are noted to be extremely poor. The patient is getting easily agitated. No side effects to the medications are noted. The patient is currently on the Seroquel 125 mg twice a day. In view of the impulsivity, I have decided to start the patient on Depakote 125 mg twice a day and follow the patient with the supportive therapy. JOB# [id number]
[2016-12-24] MEDS: INSULIN ASPART, RECOMBINANT 100 UNITS/ML SUBQ SCH ×4 (06:44→21:14)
[2016-12-24] MEDS: Menthol/Zinc Oxide Oint 113gm Tube TP SCH ×3 (09:52→21:18)
--- NOTE | 2016-12-24 10:01 | General Progress Note ---
Subjective - Review of Systems Events since last encounter: patient very confused , irritable denies chest pain , denies pain Subjective: awake, alert, nad Objective - Results Recent Labs: Laboratory Last Values Glucose 263 mg/dL (70-105) H 12/19/16 23:04 POC Glucose 314 MG/DL (70 - 105) H 12/23/16 16:28 - Physical Exam Vitals and I&O: Vital Signs Temp 98 F 12/24/16 06:42 Pulse 82 12/24/16 06:42 Resp 20 12/24/16 06:42 BP 126/53 12/24/16 06:42 Pulse Ox 98 12/24/16 06:42 Intake & Output 12/23/16 12/24/16 12/24/16 18:59 06:59 18:59 Intake Total 800 120 Balance 800 120 Weight (lbs) 51.075 kg Intake: Oral 800 120 Other: # Voids 4 3 # Bowel Movements 1 1 Active Medications: Current Medications Acetaminophen (Tylenol) 325 mg PO Q6HR PRN PRN Reason: Pain (Mild) Stop: 02/10/17 17:25 Ascorbic Acid (Vitamin C) 500 mg PO DAILY [facility] Stop: 02/11/17 08:59 Last Admin: 12/23/16 10:08 Dose: 500 mg Atorvastatin Calcium (Lipitor) 10 mg PO HS YOSEPH PRN Reason: Protocol Stop: 02/10/17 20:59 Last Admin: 12/23/16 20:34 Dose: 10 mg Calamine/Phenol (Calmoseptine) 1 appl TP TID YOSEPH Stop: 02/11/17 20:59 Last Admin: 12/23/16 20:40 Dose: 1 appl Divalproex Sodium (Depakote Dr) 125 mg PO Q12HR YOSEPH PRN Reason: Protocol Stop: 02/21/17 20:59 Last Admin: 12/23/16 23:12 Dose: 125 mg Glipizide (Glucotrol) 5 mg PO BID YOSEPH Stop: 02/11/17 08:59 Last Admin: 12/23/16 16:38 Dose: 5 mg Insulin Aspart (Novolog) 0 units SUBQ ACHS YOSEPH PRN Reason: Protocol Stop: 02/10/17 20:59 Last Admin: 12/24/16 06:44 Dose: 2 units Lorazepam (Ativan) 0.5 mg PO Q4HR PRN; Protocol PRN Reason: Anxiety Stop: 01/11/17 17:17 Last Admin: 12/23/16 16:38 Dose: 0.5 mg Losartan Potassium (Cozaar) 100 mg PO DAILY YOSEPH Stop: 02/11/17 08:59 Last Admin: 12/23/16 10:09 Dose: Not Given Magnesium Hydroxide (Milk Of Magnesia) 30 ml PO HS PRN PRN Reason: Constipation Stop: 02/10/17 17:20 Ondansetron HCl (Zofran Odt) 4 mg PO Q6HR PRN PRN Reason: Nausea / Vomiting Stop: 02/10/17 17:25 Quetiapine Fumarate (Seroquel) 25 mg PO DAILY YOSEPH PRN Reason: Protocol Stop: 02/11/17 08:59 Last Admin: 12/23/16 10:08 Dose: 25 mg Zolpidem Tartrate (Ambien) 5 mg PO HS PRN PRN Reason: Insomnia Stop: 02/10/17 17:17 Last Admin: 12/23/16 20:34 Dose: 5 mg General: No acute distress HEENT: Atraumatic Neck: Supple Cardiovascular: Regular rate, Normal S1, Normal S2 Abdomen: Bowel sounds Assessment/Plan - Plan Plan: monitor vitals/diet labs f/p consult Nutritional Asmnt/Malnutr-PDOC - Dietary Evaluation Malnutrition Findings (Please click <Entered> for more info): Nutritional Asmnt/Malnutrition Start: 12/16/16 17: 21 Text: Status: Complete Freq: Document 12/16/16 17:22 GSUN (Rec: 12/16/16 17:38 GSUN [email or web address]) Nutritional Asmnt/Malnutrition Patient General Information Nutritional Screening Moderate Risk Screening Diagnosis Psychotic disorder NOS, dementia and behaviorla change secondary trait Pertinent Medical Hx/Surgical Hx DM, HTN, dementia, psychosis, depression, anxiety, perianal excoriation, hypercholesterolemai, arthritis Subjective Information 76 year old female from SNF, transfered form [facility], [place] speaking. Per nursing notes, pt is confused. Pt seen in solomon chair in rec room, pt was very talkative. Per meal activity, PO intake appear to be increasing since adm, avg PO intake 49% of past 8 meals recorded, meeting 60% of lower end kcal needs. No muscle/fat wasting noted. Current Diet Order/ Nutrition Support [facility] chopped, CCHO, MACKENZIE Pertinent Medications Vitamin C, Glucotrol, Novolog, MOM, Zofran, Seroquel Pertinent Labs POC glucose 235-280 since adm Nutritional Hx/Data Height 1.57 m Height (Calculated Centimeters) 157.5 Current Weight (lbs) 55.792 kg Weight (Calculated Kilograms) 55.8 Weight (Calculated Grams) 36206.9 [place] Body Weight 110 Weight Status Approriate GI Symptoms Usual diet at home [place] healthcare: [facility], MACKENZIE, [facility] soft Skin Integrity/Comment: Alessandro 17. Redness abdominal fold and groin area. Current %PO Poor (25-49%) Estimated Nutritional Goals BEE in Kcals: Using Current wt Calories/Kcals/Kg CBW 123lb/55.9kg Kcals Calculated 1398-1677kcal (25-30kcal/kg) Protein: Using Current wt Protein Calculated 56g (1g/kg) Fluid: ml 1398-1677ml (1ml/kcal) Nutritional Problem 2. Problem Problem Inadequate oral food beverage intake related to Etiology unknwon, possibly cogntion aeb Signs/Symptoms: avg PO intake meeting 60% of lower end kcal needs 1. Problem Problem Altered nutrition related laboratory values related to Etiology DM aeb Signs/Symptoms: H&P, POC glucose 235-280 since adm Intervention/Recommendation Comments 1. Continue with current diet order. Avg PO intake is inadequate. Assist with meals. 2. Recommend Boost Glucose BID . 3. Recommend glucose labs and POC checks, only 3 POC checks since adm at 235-280H. Expected Outcomes/Goals Expected Outcomes/Goals 1. PO itnake to meet at least 75% of estimated nutritional needs.
[2016-12-24] MEDS: Atorvastatin Calcium 10 MG TAB PO SCH (21:13)
--- NOTE | 2016-12-24 23:08 | Progress Notes ---
DATE: PSYCHIATRIC PROGRESS NOTE SUBJECTIVE: Staff was spoken to. The patient is interviewed. Mood is noted to be irritable. Affect is constricted. The patient is still very deceptive. Insight and judgment at this time are noted to be still impaired. Impulse control seems to be limited. The patient has been placed on the Depakote in addition to the Seroquel for her mood swings and disruptive behavior. The patient has been having difficult time to cope with the stress. The patient is still confused and demented. ASSESSMENT: The patient is still impulsive, paranoid. PLAN: To continue the patient with the current medications. I encouraged the patient to verbalize the concerns rather than to act out. JOB# [id number]
[2016-12-25] MEDS: INSULIN ASPART, RECOMBINANT 100 UNITS/ML SUBQ SCH ×4 (06:37→20:46)
[2016-12-25] MEDS: Menthol/Zinc Oxide Oint 113gm Tube TP SCH ×3 (08:57→20:37)
--- NOTE | 2016-12-25 13:31 | General Progress Note ---
Subjective - Review of Systems Events since last encounter: patient still paranoid Subjective: awake, alert, nad Objective - Results Recent Labs: Laboratory Last Values Glucose 263 mg/dL (70-105) H 12/19/16 23:04 POC Glucose 239 MG/DL (70 - 105) H 12/25/16 11:36 - Physical Exam Vitals and I&O: Vital Signs Temp 97.2 F 12/25/16 06:14 Pulse 83 12/25/16 08:54 Resp 18 12/25/16 08:00 BP 110/59 12/25/16 08:54 Pulse Ox 99 12/25/16 06:14 Intake & Output 12/24/16 12/25/16 12/25/16 18:59 06:59 18:59 Intake Total 1200 120 Balance 1200 120 Intake: Oral 1200 120 Other: # Voids 3 # Bowel Movements 1 Active Medications: Current Medications Acetaminophen (Tylenol) 325 mg PO Q6HR PRN PRN Reason: Pain (Mild) Stop: 02/10/17 17:25 Ascorbic Acid (Vitamin C) 500 mg PO DAILY YOSEPH Stop: 02/11/17 08:59 Last Admin: 12/25/16 08:53 Dose: 500 mg Atorvastatin Calcium (Lipitor) 10 mg PO HS YOSEPH PRN Reason: Protocol Stop: 02/10/17 20:59 Last Admin: 12/24/16 21:13 Dose: 10 mg Calamine/Phenol (Calmoseptine) 1 appl TP TID YOSEPH Stop: 02/11/17 20:59 Last Admin: 12/25/16 08:57 Dose: 1 appl Divalproex Sodium (Depakote Dr) 125 mg PO Q12HR YOSEPH PRN Reason: Protocol Stop: 02/21/17 20:59 Last Admin: 12/25/16 08:54 Dose: 125 mg Glipizide (Glucotrol) 5 mg PO BID YOSEPH Stop: 02/11/17 08:59 Last Admin: 12/25/16 08:54 Dose: 5 mg Insulin Aspart (Novolog) 0 units SUBQ ACHS YOSEPH PRN Reason: Protocol Stop: 02/10/17 20:59 Last Admin: 12/25/16 11:42 Dose: 4 units Lorazepam (Ativan) 0.5 mg PO Q4HR PRN; Protocol PRN Reason: Anxiety Stop: 01/11/17 17:17 Last Admin: 12/23/16 16:38 Dose: 0.5 mg Losartan Potassium (Cozaar) 100 mg PO DAILY YOSEPH Stop: 02/11/17 08:59 Last Admin: 12/25/16 08:54 Dose: 100 mg Magnesium Hydroxide (Milk Of Magnesia) 30 ml PO HS PRN PRN Reason: Constipation Stop: 02/10/17 17:20 Ondansetron HCl (Zofran Odt) 4 mg PO Q6HR PRN PRN Reason: Nausea / Vomiting Stop: 02/10/17 17:25 Quetiapine Fumarate (Seroquel) 25 mg PO DAILY YOSEPH PRN Reason: Protocol Stop: 02/11/17 08:59 Last Admin: 12/25/16 08:54 Dose: 25 mg Zolpidem Tartrate (Ambien) 5 mg PO HS PRN PRN Reason: Insomnia Stop: 02/10/17 17:17 Last Admin: 12/24/16 21:13 Dose: 5 mg General: No acute distress HEENT: Atraumatic Neck: Supple Cardiovascular: Regular rate, Normal S1, Normal S2 Abdomen: Bowel sounds Assessment/Plan - Plan Plan: monitor vitals/diet labs f/p consult Nutritional Asmnt/Malnutr-PDOC - Dietary Evaluation Malnutrition Findings (Please click <Entered> for more info): Nutritional Asmnt/Malnutrition Start: 12/16/16 17: 21 Text: Status: Complete Freq: Document 12/16/16 17:22 GSUN (Rec: 12/16/16 17:38 GSUN [email or web address]) Nutritional Asmnt/Malnutrition Patient General Information Nutritional Screening Moderate Risk Screening Diagnosis Psychotic disorder NOS, dementia and behaviorla change secondary trait Pertinent Medical Hx/Surgical Hx DM, HTN, dementia, psychosis, depression, anxiety, perianal excoriation, hypercholesterolemai, arthritis Subjective Information 76 year old female from SNF, transfered form [facility], Polish speaking. Per nursing notes, pt is confused. Pt seen in oslomon chair in rec room, pt was very talkative. Per meal activity, PO intake appear to be increasing since adm, avg PO intake 49% of past 8 meals recorded, meeting 60% of lower end kcal needs. No muscle/fat wasting noted. Current Diet Order/ Nutrition Support Mech chopped, CCHO, MACKENZIE Pertinent Medications Vitamin C, Glucotrol, Novolog, MOM, Zofran, Seroquel Pertinent Labs POC glucose 235-280 since adm Nutritional Hx/Data Height 1.57 m Height (Calculated Centimeters) 157.5 Current Weight (lbs) 55.792 kg Weight (Calculated Kilograms) 55.8 Weight (Calculated Grams) 65919.9 [place] Body Weight 110 Weight Status Approriate GI Symptoms Usual diet at home [place] [facility]: [facility] Integrity/Comment: Alessandro 17. Redness abdominal fold and groin area. Current %PO Poor (25-49%) Estimated Nutritional Goals BEE in Kcals: Using Current wt Calories/Kcals/Kg CBW 123lb/55.9kg Kcals Calculated 1398-1677kcal (25-30kcal/kg) Protein: Using Current wt Protein Calculated 56g (1g/kg) Fluid: ml 1398-1677ml (1ml/kcal) Nutritional Problem 2. Problem Problem Inadequate oral food beverage intake related to Etiology unknwon, possibly cogntion aeb Signs/Symptoms: avg PO intake meeting 60% of lower end kcal needs 1. Problem Problem Altered nutrition related laboratory values related to Etiology DM aeb Signs/Symptoms: H&P, POC glucose 235-280 since adm Intervention/Recommendation Comments 1. Continue with current diet order. Avg PO intake is inadequate. Assist with meals. 2. Recommend Boost Glucose BID . 3. Recommend glucose labs and POC checks, only 3 POC checks since adm at 235-280H. Expected Outcomes/Goals Expected Outcomes/Goals 1. PO itnake to meet at least 75% of estimated nutritional needs.
[2016-12-25] MEDS: Atorvastatin Calcium 10 MG TAB PO SCH (20:28)
[2016-12-26] MEDS: INSULIN ASPART, RECOMBINANT 100 UNITS/ML SUBQ SCH ×2 (06:37→12:23)
--- NOTE | 2016-12-26 08:15 | General Progress Note ---
Subjective - Review of Systems Events since last encounter: patient paranoid , denies chest pain denies sob Subjective: awake, alert, nad Objective - Results Recent Labs: Laboratory Last Values Glucose 263 mg/dL (70-105) H 12/19/16 23:04 POC Glucose 228 MG/DL (70 - 105) H 12/26/16 05:54 - Physical Exam Vitals and I&O: Vital Signs Temp 98.6 F 12/26/16 06:37 Pulse 79 12/26/16 06:37 Resp 18 12/26/16 06:37 BP 115/66 12/26/16 06:37 Pulse Ox 96 12/26/16 06:37 Intake & Output 12/25/16 12/26/16 12/26/16 18:59 06:59 18:59 Intake Total 1200 120 Balance 1200 120 Intake: Oral 1200 120 Other: # Voids 3 # Bowel Movements 1 Active Medications: Current Medications Acetaminophen (Tylenol) 325 mg PO Q6HR PRN PRN Reason: Pain (Mild) Stop: 02/10/17 17:25 Ascorbic Acid (Vitamin C) 500 mg PO DAILY YOSEPH Stop: 02/11/17 08:59 Last Admin: 12/25/16 08:53 Dose: 500 mg Atorvastatin Calcium (Lipitor) 10 mg PO HS YOSEPH PRN Reason: Protocol Stop: 02/10/17 20:59 Last Admin: 12/25/16 20:28 Dose: 10 mg Calamine/Phenol (Calmoseptine) 1 appl TP TID YOSEPH Stop: 02/11/17 20:59 Last Admin: 12/25/16 20:37 Dose: 1 appl Divalproex Sodium (Depakote Dr) 125 mg PO Q12HR YOSEPH PRN Reason: Protocol Stop: 02/21/17 20:59 Last Admin: 12/25/16 20:27 Dose: 125 mg Glipizide (Glucotrol) 5 mg PO BID YOSEPH Stop: 02/11/17 08:59 Last Admin: 12/25/16 16:33 Dose: 5 mg Insulin Aspart (Novolog) 0 units SUBQ ACHS YOSEPH PRN Reason: Protocol Stop: 02/10/17 20:59 Last Admin: 12/26/16 06:37 Dose: 4 units Lorazepam (Ativan) 0.5 mg PO Q4HR PRN; Protocol PRN Reason: Anxiety Stop: 01/11/17 17:17 Last Admin: 12/25/16 13:56 Dose: 0.5 mg Losartan Potassium (Cozaar) 100 mg PO DAILY YOSEPH Stop: 02/11/17 08:59 Last Admin: 12/25/16 08:54 Dose: 100 mg Magnesium Hydroxide (Milk Of Magnesia) 30 ml PO HS PRN PRN Reason: Constipation Stop: 02/10/17 17:20 Ondansetron HCl (Zofran Odt) 4 mg PO Q6HR PRN PRN Reason: Nausea / Vomiting Stop: 02/10/17 17:25 Quetiapine Fumarate (Seroquel) 25 mg PO BID YOSEPH PRN Reason: Protocol Stop: 02/24/17 08:59 Zolpidem Tartrate (Ambien) 5 mg PO HS PRN PRN Reason: Insomnia Stop: 02/10/17 17:17 Last Admin: 12/25/16 20:28 Dose: 5 mg General: No acute distress HEENT: Atraumatic Neck: Supple Cardiovascular: Regular rate, Normal S1, Normal S2 Abdomen: Bowel sounds Assessment/Plan - Plan Plan: monitor vitals/diet labs f/p consult Nutritional Asmnt/Malnutr-PDOC - Dietary Evaluation Malnutrition Findings (Please click <Entered> for more info): Nutritional Asmnt/Malnutrition Start: 12/16/16 17: 21 Text: Status: Complete Freq: Document 12/16/16 17:22 GSUN (Rec: 12/16/16 17:38 GSUN [email or web address]) Nutritional Asmnt/Malnutrition Patient General Information Nutritional Screening Moderate Risk Screening Diagnosis Psychotic disorder NOS, dementia and behaviorla change secondary trait Pertinent Medical Hx/Surgical Hx DM, HTN, dementia, psychosis, depression, anxiety, perianal excoriation, hypercholesterolemai, arthritis Subjective Information 76 year old female from SNF, transfered form [facility], [place] speaking. Per nursing notes, pt is confused. Pt seen in solomon chair in rec room, pt was very talkative. Per meal activity, PO intake appear to be increasing since adm, avg PO intake 49% of past 8 meals recorded, meeting 60% of lower end kcal needs. No muscle/fat wasting noted. Current Diet Order/ Nutrition Support Mech chopped, CCHO, MACKENZIE Pertinent Medications Vitamin C, Glucotrol, Novolog, MOM, Zofran, Seroquel Pertinent Labs POC glucose 235-280 since adm Nutritional Hx/Data Height 1.57 m Height (Calculated Centimeters) 157.5 Current Weight (lbs) 55.792 kg Weight (Calculated Kilograms) 55.8 Weight (Calculated Grams) 66623.9 [place] Body Weight 110 Weight Status Approriate GI Symptoms Usual diet at home [place] [facility]: [facility], [facility], [facility] soft Skin Integrity/Comment: Alessandro 17. Redness abdominal fold and groin area. Current %PO Poor (25-49%) Estimated Nutritional Goals BEE in Kcals: Using Current wt Calories/Kcals/Kg CBW 123lb/55.9kg Kcals Calculated 1398-1677kcal (25-30kcal/kg) Protein: Using Current wt Protein Calculated 56g (1g/kg) Fluid: ml 1398-1677ml (1ml/kcal) Nutritional Problem 2. Problem Problem Inadequate oral food beverage intake related to Etiology unknwon, possibly cogntion aeb Signs/Symptoms: avg PO intake meeting 60% of lower end kcal needs 1. Problem Problem Altered nutrition related laboratory values related to Etiology DM aeb Signs/Symptoms: H&P, POC glucose 235-280 since adm Intervention/Recommendation Comments 1. Continue with current diet order. Avg PO intake is inadequate. Assist with meals. 2. Recommend Boost Glucose BID . 3. Recommend glucose labs and POC checks, only 3 POC checks since adm at 235-280H. Expected Outcomes/Goals Expected Outcomes/Goals 1. PO itnake to meet at least 75% of estimated nutritional needs.
--- NOTE | 2016-12-26 16:30 | Progress Notes ---
DATE: 12/25/2016 PSYCHIATRIC PROGRESS NOTE SUBJECTIVE: Staff was spoken to. The patient is interviewed. Mood is noted to be irritable. Affect is constricted. The patient is still impulsive and has been trying to reach things and the patient has been getting easily irritable. No side effects to the medications are noted. The patient is currently on Seroquel 25 mg and is going to be increased to 25 mg twice a day and the patient is going to be provided with supportive therapy and the patient is going to be closely monitored. The patient at this time is not ready to be discharged to a lower level of care because of the impulsivity and confusion. JOB# [id number]
--- NOTE | 2016-12-27 05:16 | Discharge Summary ---
DATE OF DISCHARGE: 12/26/2016 IDENTIFYING DATA: The patient is a 76-year-old woman, resident of [facility]. Information obtained by directly interviewing the patient as well as reviewing the admission papers. JUSTIFICATION OF HOSPITALIZATION: The patient is admitted on a voluntary basis for her acute psychosis and agitation. CHIEF COMPLAINT: "I do not know what is going on, get the children out of my way." HISTORY OF PRESENT ILLNESS: Please refer to the 12/12/2016 dictation done by me. Physical examination at the time of the admission was requested to be done by Dr. Aston Allison. HOSPITAL COURSE AND RESPONSE TO TREATMENT: The patient had blood work done and the patient's glucose has been closely monitored and patient has been encouraged to participate in the groups and verbalize the concerns. The patient has been found to have sodium very low and the patient has been closely monitored for her seizures. Glucose is the one that has to be monitored and the patient has been encouraged to participate in the groups and verbalize the concerns. The patient was stabilizing and the patient has been placed on Seroquel, which was gradually increased to 25 mg twice a day, the divalproex acid has been discontinued. The patient has been continued on the divalproex acid 125 mg twice a day and the patient with these medications has been observed. Impulsivity started to improve and patient was finally discharged with the recommendation that she is going to be seeking treatment on outpatient basis. MENTAL STATUS EXAMINATION: At the time of discharge, patient's mood is noted to be anxious. Affect is appropriate, not suicidal or homicidal. Insight and judgment noted to be improving. Impulse control seem to be fair. No side effects to the medications are noted. The patient has been able to verbalize the concerns rather than to act out at the time of the discharge. CONDITION: At the time of discharge noted to be stable. DIAGNOSES AT THE TIME OF DISCHARGE: AXIS I: Psychotic disorder, not otherwise specified. AXIS II: None. AXIS III: As per Dr. Brewster. AFTERCARE PLAN: The patient is discharged to [facility] for further followup. PROGNOSIS: At the time of discharge is noted to be guarded. JOB# [id number]
== END 2016-12-26 15:00 | DRG 885 ==
LOC: GERO 17:10
PROVIDERS: ADMIT Psychiatry & Neurology Psychiatry; ATTEND Psychiatry & Neurology Psychiatry
DX: F29 Unspecified psychosis not due to a substance or known physiological condition (principal); F03.91 Unspecified dementia, unspecified severity, with behavioral disturbance; E11.9 Type 2 diabetes mellitus without complications; I10 Essential (primary) hypertension; E78.5 Hyperlipidemia, unspecified; M19.90 Unspecified osteoarthritis, unspecified site; F32.9 Major depressive disorder, single episode, unspecified; F41.9 Anxiety disorder, unspecified; G47.00 Insomnia, unspecified
CPT/HCPCS: 36415-UA; 82947-TC; 82948-90; 90899; G0410; J1200; J1630; Z7610